=== PATIENT | female | born 1965 | race Caucasian/White ===

== ENCOUNTER 2019-10-15 05:54 | Inpatient (IN) | payer MEDICAID, OTHER ==
[~2019-10-15] VITALS: Ht 173 cm; Wt 200.2 kg
[2019-10-15] MEDS ORDERED: FENT1PAT TD (06:12)
[2019-10-15] MEDS ORDERED: WARF4TAB PO (06:12)
[2019-10-15] MEDS ORDERED: NYST1POW24 MC (06:12)
[2019-10-15] MEDS ORDERED: ALLO100T PO (06:12)
[2019-10-15] MEDS ORDERED: PRAM0.5T2 PO (06:12)
[2019-10-15] MEDS ORDERED: DICL50TA6 PO (06:12)
[2019-10-15] MEDS ORDERED: OXYC10TA7 PO (06:12)
[2019-10-15] MEDS ORDERED: METO10TA7 PO (06:12)
[2019-10-15] MEDS ORDERED: BACL20TA PO (06:12)
[2019-10-15] MEDS ORDERED: DULO30CA3 PO (06:12)
[2019-10-15] MEDS ORDERED: LEVO75TA PO (06:12)
[2019-10-15] MEDS ORDERED: CIPR-225 PO (06:12)
[2019-10-15] MEDS ORDERED: POTA99TA21 PO (06:12)
[2019-10-15] MEDS ORDERED: PANT40SU PO (06:12)
[2019-10-15] MEDS ORDERED: METF500S5 PO (06:12)
[2019-10-15] MEDS ORDERED: FURO-124 PO (06:12)
--- NOTE | 2019-10-15 06:23 | ED Respiratory ---
General Chief Complaint: Respiratory Problems Stated Complaint: SOA Source: patient, EMS, custodial records Exam Limitations: no limitations History of Present Illness Date Seen by Provider: Oct 15, 2019 Time Seen by Provider: 05:57 Initial Comments Patient arrives to ER by EMS from [facility] with chief complaint of decreased oxygen saturations noted on morning vital signs. She was not started feeling short of breath having any cough fevers chills but said she felt a little foggy this morning. She does not wear oxygen routinely. On room air she was 87 percent and on 6 L nasal cannula per EMS she was 100% she does not have any known pulmonary disease. 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 She has noticed a lot of increased swelling in bilateral legs all the way up into her hips. She says last week before the swelling she weighed 444 pounds. She has not been weighed this week. She was in the rehabilitation unit for physical therapy after a right hip fracture. She started having problems with her knee and so they scheduled her for an MRI but because of global pandemic restrictions she was unable to get the MRI and has been in a holding pattern since. For the past few weeks she's been having some red rash on bilateral lower extremities and swelling that has steadily gotten worse. She is on her second course of antibiotics. She has been on Cipro for 2 days. A few days ago she noticed some blisters and weeping from her legs and this was cultured showing MSSA pansensitive. She's had no sick contacts. Her bowels are regular and she has no dysuria. She says she has no known heart disease but she did have a history of kidney failure years ago. Allergies and Home Medications Allergies Coded Allergies: diphenhydramine (Verified Allergy, Unknown, 10/15/19) RESTLESS LEGSSD Home Medications Pantoprazole Sodium 40 Mg , 40 MG PO DAILY, (Reported) Warfarin Sodium 4 Mg Tablet, Unknown Dose PO DAILY, (Reported) Patient Home Medication List Home Medication List Reviewed: Yes Review of Systems Review of Systems Constitutional: No chills, No fever, No malaise, No weakness EENTM: No ear discharge, No ear pain Respiratory: No cough, No phlegm; short of breath; No wheezing Cardiovascular: No chest pain; edema; No Hx of Intervention, No vascular heart diseas Gastrointestinal: No abdominal pain, No nausea, No vomiting Genitourinary: No discharge, No dysuria Musculoskeletal: No back pain, No joint pain Skin: see HPI, rash Psychiatric/Neurological: Denies Headache, Denies Numbness All Other Systems Reviewed Negative Unless Noted: Yes Past Mjrtnre-Rbmoca-Qvosnv Hx Patient Social History Alcohol Use: Denies Use Recreational Drug Use: No Smoking Status: Former Smoker Type Used: Cigarettes 2nd Hand Smoke Exposure: No Recent Hopitalizations: No Physical Abuse: No Sexual Abuse: No Mistreated: No Fear: No Immunizations Up To Date Tetanus Booster (TDap): Unknown Seasonal Allergies Seasonal Allergies: No Past Medical History Surgeries: Yes Appendectomy, Section, Gallbladder, Orthopedic Respiratory: Yes Sleep Apnea Cardiac: No Neurological: Yes Neuropathy Genitourinary: No Gastrointestinal: Yes Gastroesophageal Reflux Musculoskeletal: Yes Fibromyalgia Endocrine: Yes Diabetes, Non-Insulin dep HEENT: No Cancer: No Psychosocial: No Integumentary: Yes Recent Skin Changes Blood Disorders: No Physical Exam Vital Signs - First Documented 10/15/19 06:12 Temp 36.5 Pulse 79 Resp 20 B/P (MAP) 144/70 (94) Pulse Ox 96 O2 Delivery Nasal Cannula O2 Flow Rate 4.00 Capillary Refill : Height: '" Weight: lbs. oz. kg; BMI Method: General Appearance: mild distress, obese (morbid) Eyes: Bilateral Eye Normal Inspection, Bilateral Eye PERRL, Bilateral Eye EOMI HEENT: PERRL/EOMI, pharynx normal Neck: full range of motion, normal inspection Respiratory: lungs clear, no accessory muscle use, respiratory distress (mild with respiratory rate of 20 and oxygen sats 89% on room air. Oxygen sats 96% on 4L), decreased breath sounds (secondary to habitus) Cardiovascular: normal peripheral pulses, regular rate, rhythm (76) Gastrointestinal: normal bowel sounds, non tender, soft Extremities: normal capillary refill, pedal edema (bilateral erythematous edema from the feet up to the hips with some shallow ulcers and A modest amount of weeping edema) Neurologic/Psychiatric: alert, normal mood/affect, oriented x 3 Skin: other (lower extremities are blanchable erythema with a few bullae that have turned into shallow ulcers bilaterally.) Progress/Results/Core Measures Suspected Sepsis SIRS Temperature: Pulse: Respiratory Rate: Laboratory Tests 10/15/19 06:40: White Blood Count 7.3 Blood Pressure / Mean: Laboratory Tests 10/15/19 06:40: Creatinine 1.55H, INR Comment 2.4H, Platelet Count 364, Total Bilirubin 0.3 Results/Orders Lab Results Laboratory Tests Test 10/15/19 06:40 10/15/19 07:00 Range/Units White Blood Count 7.3 4.3-11.0 10^3/uL Red Blood Count 3.75 L 4.35-5.85 10^6/uL Hemoglobin 10.8 L 11.5-16.0 G/DL Hematocrit 35 35-52 % Mean Corpuscular Volume 93 80-99 FL Mean Corpuscular Hemoglobin 29 25-34 PG Mean Corpuscular Hemoglobin Concent 31 L 32-36 G/DL Red Cell Distribution Width 18.7 H 10.0-14.5 % Platelet Count 364 130-400 10^3/uL Mean Platelet Volume 9.7 7.4-10.4 FL Neutrophils (%) (Auto) 67 42-75 % Lymphocytes (%) (Auto) 16 12-44 % Monocytes (%) (Auto) 8 0-12 % Eosinophils (%) (Auto) 9 0-10 % Basophils (%) (Auto) 0 0-10 % Neutrophils # (Auto) 4.9 1.8-7.8 X 10^3 Lymphocytes # (Auto) 1.2 1.0-4.0 X 10^3 Monocytes # (Auto) 0.6 0.0-1.0 X 10^3 Eosinophils # (Auto) 0.6 H 0.0-0.3 10^3/uL Basophils # (Auto) 0.0 0.0-0.1 10^3/uL Prothrombin Time 26.4 H 12.2-14.7 SEC INR Comment 2.4 H 0.8-1.4 Activated Partial Thromboplast Time 41 H 24-35 SEC Sodium Level 139 135-145 MMOL/L Potassium Level 3.6 3.6-5.0 MMOL/L Chloride Level 96 L 98-107 MMOL/L Carbon Dioxide Level 29 21-32 MMOL/L Anion Gap 14 5-14 MMOL/L Blood Urea Nitrogen 18 7-18 MG/DL Creatinine 1.55 H 0.60-1.30 MG/DL Estimat Glomerular Filtration Rate 35 BUN/Creatinine Ratio 12 Glucose Level 146 H 70-105 MG/DL Calcium Level 9.2 8.5-10.1 MG/DL Corrected Calcium 9.6 8.5-10.1 MG/DL Total Bilirubin 0.3 0.1-1.0 MG/DL Aspartate Amino Transf (AST/SGOT) 33 5-34 U/L Alanine Aminotransferase (ALT/SGPT) 19 0-55 U/L Alkaline Phosphatase 68 40-136 U/L Troponin I < 0.028 <0.028 NG/ML B-Type Natriuretic Peptide 52.5 <100.0 PG/ML Total Protein 8.2 6.4-8.2 GM/DL Albumin 3.5 3.2-4.5 GM/DL Blood Gas Puncture Site RT RAD Blood Gas Patient Temperature 97.7 Arterial Blood pH 7.41 7.37-7.43 Arterial Blood Partial Pressure CO2 55 H 35-45 MMHG Arterial Blood Partial Pressure O2 76 L 79-93 MMHG Arterial Blood HCO3 34 H 23-27 MMOL/L Arterial Blood Total CO2 36.1 H 21.0-31.0 MMOL/L Arterial Blood Oxygen Saturation 95 94-100 % Arterial Blood Base Excess 9.5 H -2.5-2.5 MMOL/L Reddy Test YES-POS Blood Gas Ventilator Setting NO Blood Gas Inspired Oxygen 4 L My Orders Orders - JACQUI,LOUIS J Chest 1 View, Ap/Pa Only (10/15/19 06:10) Cbc With Automated Diff (10/15/19 06:10) Comprehensive Metabolic Panel (10/15/19 06:10) BNP (10/15/19 06:10) Protime With Inr (10/15/19 06:10) Continuous Ekg Monitoring (10/15/19 06:10) Ekg Tracing (10/15/19 06:10) Troponin I (10/15/19 06:10) Partial Thromboplastin Time (10/15/19 06:10) Blood Culture (10/15/19 06:10) Cefepime Injection (Maxipime Injection) (10/15/19 06:30) Vancomycin Injection (Vancomycin Injecti (10/15/19 06:28) Pharmacy To Dose (Pharmacy To Dose) (10/15/19 06:30) Arterial Blood Gas (10/15/19 07:00) Medications Given in ED Current Medications Medications Dose Ordered Sig/Reymundo Route Start Time Stop Time Status Last Admin Dose Admin Cefepime HCl 1000 mg/Sterile Water 10 ml @ 200 mls/hr ONCE ONCE IV 10/15/19 06:30 10/15/19 06:32 DC 10/15/19 07:02 200 MLS/HR Miscellaneous PHARMACY TO DOSE VANCOMY... ONCE ONCE IV 10/15/19 06:30 10/15/19 06:32 DC 10/15/19 07:25 1 EA Vancomycin HCl 2000 mg/Sodium Chloride 500 ml @ 260 mls/hr 0628 ONCE IV 10/15/19 06:28 10/15/19 08:23 DC 10/15/19 07:25 260 MLS/HR Vital Signs/I&O 10/15/19 06:12 Temp 36.5 Pulse 79 Resp 20 B/P (MAP) 144/70 (94) Pulse Ox 96 O2 Delivery Nasal Cannula O2 Flow Rate 4.00 Capillary Refill : Progress Note : Time: 06:26 Progress Note Hypoxia from? If Her PT-INR is not sufficient it could be a pulmonary embolism however she is not tachycardic nor having any chest pain. Could be fluid overload related to kidney disease or her MSSA bilateral lower extremity cellulitis. Plann to obtain blood cultures. ABG, EKG, troponin. She is on her second course of outpatient antibiotics so we can cover her with cefepime and vancomycin. ECG Initial ECG Impression Date: Oct 15, 2019 Initial ECG Impression Time: 06:27 Initial ECG Rate: 79 Initial ECG Rhythm: Normal Sinus Initial ECG Intervals: QT (558) Initial ECG Impression: Normal Comment Normal sinus rhythm without clinically relevant ST changes. Diagnostic Imaging Diagonstic Imaging: Xray Plain Films/CT/US/NM/MRI: chest Comments NAME: JACKIE CAMPOS [facility] REC#: [id number] PT STATUS: REG ER : 1965 PHYSICIAN: LOUIS OSMAN MD ADMIT DATE: 10/15/19/ER Signed Date of Exam:10/15/19 CHEST 1 VIEW, AP/PA ONLY HISTORY: Shortness of air. COMPARISON: None TECHNIQUE: Frontal view of the chest. FINDINGS: Evaluation appears somewhat suboptimal due to positioning. There is elevation of the right hemidiaphragm and low lung volumes. There is mild cardiomegaly. There are diffuse interstitial opacities with perihilar prominence. There is airspace opacity at the left lung base. No significant pleural effusion or pneumothorax is seen. IMPRESSION: 1. Suboptimal examination due to patient positioning. There is cardiomegaly with interstitial opacities and perihilar predominance, may be due to edema or infection. Airspace opacity at the left lung base may be due to infection as well. Dictated by: Dictated on workstation # [id number] Dict: 10/15/1931 Trans: 10/15/1947 [facility] [id number] Interpreted by: JESSICA CARVAJAL MD Electronically signed by: JESSICA CARVAJAL MD 10/15/1947 Reviewed: Reviewed by Me Departure Communication (Admissions) Time/Spoke to Admitting Phy: 09:50 Discussed the case with Dr. Lindsay and she agrees with antibiotic selection and placed on the floor inpatient for oxygen and an IV antibiotics. Impression Primary Impression: Cellulitis and abscess of leg Disposition: 01 HOME, SELF-CARE Condition: Stable Admissions Decision to Admit Reason: Admit from ER (General) Decision to Admit/Date: Oct 15, 2019 Time/Decision to Admit Time: 09:45 LOUIS OSMAN Oct 15, 2019 06:23
[2019-10-15] MEDS ORDERED: VANCOMYCIN INJECTION 2,000 MG in NS IV 500 ML 500 ML IV ONE (06:28)
[2019-10-15] MEDS ORDERED: CEFEPIME INJECTION 1,000 MG in WATER (STERILE) FOR INJECTION 10 ML IV ONE (06:30)
[2019-10-15] MEDS ORDERED: PHARMACY TO DOSE IV ONE (06:30)
[2019-10-15 06:52] LABS: BASOPHILS % (AUTO) 0 % (0-10); EOSINOPHILS # (AUTO) 0.6 10^3/uL (0.0-0.3); EOSINOPHILS % (AUTO) 9 % (0-10); HEMATOCRIT 35 % (35-52); HEMOGLOBIN 10.8 G/DL (11.5-16.0); LYMPHOCYTES # (AUTO) 1.2 X 10^3 (1.0-4.0); LYMPHOCYTES % (AUTO) 16 % (12-44); MEAN CORPUSCULAR HEMOGLOBIN 29 PG (25-34); MEAN CORPUSCULAR HGB CONC 31 G/DL (32-36); MEAN CORPUSCULAR VOLUME 93 FL (80-99); MEAN PLATELET VOLUME 9.7 FL (7.4-10.4); MONOCYTES # (AUTO) 0.6 X 10^3 (0.0-1.0); MONOCYTES % (AUTO) 8 % (0-12); NEUTROPHILS # (AUTO) 4.9 X 10^3 (1.8-7.8); NEUTROPHILS % (AUTO) 67 % (42-75); PLATELET COUNT 364 10^3/uL (130-400); RED CELL DISTRIBUTION WIDTH 18.7 % (10.0-14.5); WHITE BLOOD COUNT 7.3 10^3/uL (4.3-11.0)
[2019-10-15 07:00] LABS: ALBUMIN 3.5 GM/DL (3.2-4.5)
--- NOTE | 2019-10-15 07:00 | NUR ---
REPORT FROM DANIELLA CARRASCO
[2019-10-15 07:01] LABS: CHLORIDE 96 MMOL/L (98-107); INR 2.4 (0.8-1.4); POTASSIUM 3.6 MMOL/L (3.6-5.0); PROTHROMBIN TIME PATIENT 26.4 SEC (12.2-14.7); SODIUM 139 MMOL/L (135-145)
[2019-10-15 07:02] LABS: CALCIUM 9.2 MG/DL (8.5-10.1)
[2019-10-15 07:03] LABS: GLUCOSE 146 MG/DL (70-105); TOTAL PROTEIN 8.2 GM/DL (6.4-8.2)
[2019-10-15 07:04] LABS: CARBON DIOXIDE 29 MMOL/L (21-32)
[2019-10-15 07:05] LABS: BILIRUBIN,TOTAL 0.3 MG/DL (0.1-1.0)
[2019-10-15 07:06] LABS: ABG BASE EXCESS 9.5 MMOL/L (-2.5-2.5); ABG OXYGEN SATURATION 95 % (94-100); ABG PCO2 55 MMHG (35-45); ABG PH 7.41 (7.37-7.43); ABG PO2 76 MMHG (79-93); ABG TCO2 36.1 MMOL/L (21.0-31.0)
[2019-10-15 07:07] LABS: ALKALINE PHOSPHATASE 68 U/L (40-136); CREATININE SERUM 1.55 MG/DL (0.60-1.30); GFR ESTIMATED 35
[2019-10-15 07:07] LABS: ALLENS TEST YES-POS; INSPIRED O2 4 L; PATIENT TEMP 97.7; VENTILATOR NO
[2019-10-15 07:08] LABS: BUN/CREATININE RATIO 12
[2019-10-15 07:10] LABS: ALANINE AMINOTRANSFERASE 19 U/L (0-55)
--- NOTE | 2019-10-15 07:15 | NUR ---
PT RESTING W EYES CLOSED. PT AWAKEN, PT IS ALERT WEARING O2. SL IN PLACE IN R AC. NO REQUEST OR CO AT THIS X
--- NOTE | 2019-10-15 07:38 | Diagnostic Imaging Report ---
HISTORY: Shortness of air. COMPARISON: None TECHNIQUE: Frontal view of the chest. FINDINGS: Evaluation appears somewhat suboptimal due to positioning. There is elevation of the right hemidiaphragm and low lung volumes. There is mild cardiomegaly. There are diffuse interstitial opacities with perihilar prominence. There is airspace opacity at the left lung base. No significant pleural effusion or pneumothorax is seen. IMPRESSION: 1. Suboptimal examination due to patient positioning. There is cardiomegaly with interstitial opacities and perihilar predominance, may be due to edema or infection. Airspace opacity at the left lung base may be due to infection as well. Dictated by: Dictated on workstation # [id number]
--- NOTE | 2019-10-15 10:15 | NUR ---
Report received from Cristina CARRASCO
--- OUTSIDE RECORDS SUMMARY | 2019-10-15 10:30 | XMS REPORT | Continuity of Care Document ---
Demographics Preferred Language Unknown Marital Status Unknown Gnosticist Affiliation Unknown Race Unknown Ethnic Group Unknown Author Organization Unknown Address Unknown Phone Unavailable Allergies There is no data. Medications There is no data. Problems There is no data. Procedures There is no data. Results Test Result Range Complete blood count (CBC) with automate d white blood cell (WBC) differential - 10/15/19 06:40 Blood leukocytes automated count (number/volume) 7.3 10*3/uL 4.3-11.0 Blood erythrocytes automated count (number/volume) 3.75 10*6/uL 4.35-5.85 Venous blood hemoglobin measurement (mass/volume) 10.8 g/dL 11.5-16.0 Blood hematocrit (volume fraction) 35 % 35-52 Automated erythrocyte mean corpuscular volume 93 [ foz_us] 80-99 Automated erythrocyte mean corpuscular h emoglobin (mass per erythrocyte) 29 pg 25-34 Automated erythrocyte mean corpuscular h emoglobin concentration measurement (mass/volume) 31 g/dL 32-36 Automated erythrocyte distribution width ratio 18. 7 % 10.0- 14.5 Automated blood platelet count (count/volume) 364 10*3/uL 130-400 Automated blood platelet mean volume measurement 9.7 [foz_us] 7.4-10.4 Automated blood neutrophils/100 leukocytes 67 % 42-75 Automated blood lymphocytes/100 leukocytes 16 % 12-44 Blood monocytes/100 leukocytes 8 % 0-12 Automated blood eosinophils/100 leukocytes 9 % 0-10 Automated blood basophils/100 leukocytes 0 % 0-10 Blood neutrophils automated count (number/volume) 4.9 10*3 1.8-7.8 Blood lymphocytes automated count (number/volume) 1.2 10*3 1.0-4.0 Blood monocytes automated count (number/volume) 0. 6 10*3 0.0-1.0 Automated eosinophil count 0.6 10*3/uL 0 .0-0.3 Automated blood basophil count (count/volume) 0.0 10*3/uL 0.0-0.1 Comprehensive metabolic panel - 10/15/19 06:40 Serum or plasma sodium measurement (moles/volume) 139 mmol/L 135-145 Serum or plasma potassium measurement (moles/volume) 3.6 mmol/L 3.6-5.0 Serum or plasma chloride measurement (moles/volume) 96 mmol/L 98-107 Carbon dioxide 29 mmol/L 21-32 Serum or plasma anion gap determination (moles/volume) 14 mmol/L 5-14 Serum or plasma urea nitrogen measurement (mass/volume ) 18 mg/dL 7-18 Serum or plasma creatinine measurement (mass/volume) 1.55 mg/dL 0.60-1.30 Serum or plasma urea nitrogen/creatinine mass ratio 12 NRG Serum or plasma creatinine measurement w ith calculation of estimated glomerular filtration rate 35 NRG Serum or plasma glucose measurement (mass/volume) 146 mg/dL 70-105 Serum or plasma calcium measurement (mass/volume) 9.2 mg/dL 8.5-10.1 Serum or plasma total bilirubin measurement (mass/volu me) 0.3 mg/dL 0.1-1.0 Serum or plasma alkaline phosphatase matthew surement (enzymatic activity/volume) 68 U/L 40-136 Serum or plasma aspartate aminotransfera se measurement (enzymatic activity/volume) 33 U/L 5-34 Serum or plasma alanine aminotransferase measurement (enzymatic activity/volume) 19 U/L 0-55 Serum or plasma protein measurement (mass/volume) 8.2 g/dL 6.4-8.2 Serum or plasma albumin measurement (mass/volume) 3.5 g/dL 3.2-4.5 CALCIUM CORRECTED 9.6 mg/dL 8.5-10.1 PT panel in platelet poor plasma by coag ulation assay - 10/15/19 06:40 Prothrombin time (PT) in platelet poor plasma by coagu lation assay 26.4 s 12.2-14.7 INR in platelet poor plasma or blood by coagulation as say 2.4 0.8-1.4 Activated partial thromboplastin time (a PTT) in platelet poor plasma bycoagulation assay - 10/15/19 06:40 Activated partial thromboplastin time (a PTT) in platelet poor plasma bycoagulation assay 41 s 24-35 Serum or plasma troponin i.cardiac measu rement (mass/volume) - 10/15/19 06:40 Serum or plasma troponin i.cardiac measurement (mass/v olume) < ng/mL <0.028 Serum or plasma lithium measurement (mol es/volume) - 10/15/19 06:40 BNP PT 52.5 pg/mL <100.0 Arterial blood gas measurement - 0 07:00 Blood pCO2 55 mm[Hg] 35-45 Blood pO2 76 mm[Hg] 79-93 Arterial blood bicarbonate measurement (moles/volume) 34 mmol/L 23-27 Arterial blood base excess by calculation 9.5 mmol /L -2.5-2.5 Arterial blood oxygen saturation measurement 95 % 94-100 * Inhaled oxygen flow rate 4 L NRG Arterial blood pH measurement with patient temperature correction 7.41 7.37-7.43 Arterial blood carbon dioxide, total measurement (mole s/volume) 36.1 mmol/L 21.0-31.0 Body site RT RAD NRG Assessment of wrist artery patency prior to arterial p uncture YES-POS NRG Setting of ventilation mode NO NR G Measurement of body temperature 97.7 NRG Encounters ACCT No. Visit Date/Time Discharge Status Pt. Type Provider Facility Loc./Unit Complaint [id number] 10/15/2019 06:53:00 Document Registration
--- NOTE | 2019-10-15 10:35 | NUR ---
Nirav Campos admitted to room 407-1, with an admitting diagnosis of Cellultis Bilateral LE, on 10/15/19 from AM via , accompanied by .NIRAV CAMPOS introduced to surroundings, call light, bed controls, phone, TV, temperature control, lights, meal times, smoking policy, visitor policy, side rail policy, bathrooms and showers. Patient Rights given to patient in the handbook.NIRAV CAMPOS verbalizes understanding that [facility] is not responsible for the loss or damage to any personal effects or valuables that are kept in the patients posession during their hospitalization. NIRAV CAMPOS verbalizes understanding of Interdisciplinary Patient Education. Patient and/or family were informed about the Rapid Response Team and its purpose.
--- NOTE | 2019-10-15 10:35 | NUR ---
NIRAV CAMPOS admitted to room 407-1, with an admitting diagnosis of CELLULITUS/HYPOXIA , on 10/15/19 from AM via BED, accompanied by STAFF. NIRAV CAMPOS introduced to surroundings, call light, bed controls, phone, TV, temperature control, lights, meal times, smoking policy, visitor policy, side rail policy, bathrooms and showers. Patient Rights given to patient in the handbook. NIRAV CAMPOS verbalizes understanding that [facility] is not responsible for the loss or damage to any personal effects or valuables that are kept in the patients posession during their hospitalization. NIRAV CAMPOS verbalizes understanding of Interdisciplinary Patient Education. Patient and/or family were informed about the Rapid Response Team and its purpose.
[2019-10-15 10:47] VITALS: BP 135/75
[2019-10-15] MEDS ORDERED: fentaNYL PATCH 75 MCG (DURAGESIC) TOP SCH (11:00)
[2019-10-15] MEDS ORDERED: ONDANSETRON 4 MG/2 ML (SDV) Z0FRAN IVP PRN (11:15)
[2019-10-15] MEDS ORDERED: HYDROcodone/APAP 5 MG/325 MG (LORTAB) TAB PO PRN (11:15)
[2019-10-15] MEDS: PANTOPRAZOLE 40 MG (PROTONIX) TAB PO SCH (11:24)
[2019-10-15] MEDS: inSUlin ASPART (NovoLOG) 1 UNIT/0.01 ML (CHARGE PER UNIT) SC SCH ×3 (11:26→20:17)
[2019-10-15] MEDS: LACTATED RINGERS 1,000 ML IV SCH ×2 (11:27→20:17)
[2019-10-15 11:42] VITALS: BP 135/75
[2019-10-15 11:43] VITALS: BP 135/75
--- NOTE | 2019-10-15 11:54 | NUR ---
VANCOMYCIN DOSING SCR 1.55; ADJ BW 118 KG; CRCL ~ 78; DOSED VANC 2 GM Q12H CHECK TROUGH LEVEL BEFORE 4TH DOSE 10/15 1830 HOLD DOSE AND CONTACT PHARMACY IF LEVEL IS GREATER THAN 20 OR LESS THAN 10
[2019-10-15] MEDS: CEFEPIME 1,000 MG/SWFI 10 ML IV PUSH IV SCH ×4 (12:06→18:24)
[2019-10-15 12:24] VITALS: BP 144/70
[2019-10-15] MEDS ORDERED: RT-ALBUTEROL SULF 2.5 MG/3 ML PRE-MIX VIAL INH PRN (13:00)
[2019-10-15] MEDS ORDERED: WRF10T PO (13:40)
[2019-10-15] MEDS ORDERED: BACL10TA PO (13:40)
[2019-10-15] MEDS ORDERED: WARF-48 PO (13:40)
[2019-10-15] MEDS ORDERED: DICL100G31 TD (13:40)
[2019-10-15] MEDS ORDERED: NYST15OI13 TP (14:07)
[2019-10-15] MEDS ORDERED: METF-397 PO (14:07)
[2019-10-15] MEDS ORDERED: PANT40TA2 PO (14:07)
[2019-10-15] MEDS ORDERED: METO2.5T PO (14:07)
[2019-10-15] MEDS ORDERED: LEVO50TA6 PO (14:07)
[2019-10-15] MEDS ORDERED: PRAM1TAB2 PO (14:07)
[2019-10-15] MEDS ORDERED: OXYC-190 PO (14:07)
[2019-10-15] MEDS ORDERED: POTA10TA36 PO (14:07)
[2019-10-15] MEDS ORDERED: IBUP-2185 PO (14:07)
[2019-10-15] MEDS ORDERED: FENT1PAT10 TD (14:22)
--- NOTE | 2019-10-15 14:24 | NUR ---
I WENT THROUGH THE ORDER SUMMARY REPORT FROM [facility] AND CALLED [facility] TO COMPLETE THE MED REC. WHEN I CALLED THEY TOLD ME THAT THE LAST TIME THAT A FENTANYL PATCH WAS APPLIED WAS 10/12/2019
[2019-10-15] MEDS: RT-ALBUTEROL SULF 2.5 MG/3 ML PRE-MIX VIAL INH SCH ×2 (15:10→20:27)
[2019-10-15] MEDS ORDERED: DICLOFENAC 1% GEL 100 GM (VOLTAREN) TUBE TOP PRN (15:15)
[2019-10-15] MEDS ORDERED: warFARin 5 MG (COUMADIN) TAB PO SCH ×2 (15:15→18:00)
[2019-10-15] MEDS ORDERED: warFARin 10 MG (COUMADIN) TAB PO SCH (15:15)
--- NOTE | 2019-10-15 16:25 | History & Physical-Hospitalist ---
History of Present Illness HPI/Chief Complaint Pt is a 54yoCF with a PMH of femur fracture in January 2019 s/p repair, hypothyroidism, chronic pain, history of DVT who presented to the ER due to hypoxia. Reportedly her oxygen saturation was 87% on morning vital checks. She was not coughing or short of breath when this was done but now she states she is somewhat SOB. Her biggest concern has been her legs. She states 1 week ago she developed a "rash" on both of her legs that was cultured and she was informed today that it was MSSA. She was treated with oral abx [place] the [place] but it did not improve her cellulitis. She is being admitted for failing outpatient management. Source: patient Date Seen 10/15/19 Time Seen by a Provider: 15:48 Attending Physician Salas Lindsay MD PCP Omero Beck DO Referring Physician Date of Admission Oct 15, 2019 at 10:01 Home Medications & Allergies Home Medications Reviewed patient Home Medication Reconciliation performed by pharmacy medication reconciliations career resource technician and/or nursing. Patients Allergies have been reviewed. Allergies Allergies Coded Allergies diphenhydramine (Verified Allergy, Unknown, 10/15/19) RESTLESS LEGSSD Past Ohzmxwb-Aoigws-Tvbqij Hx Past Med/Social Hx: Reviewed Nursing Past Med/Soc Hx Patient Social History Alcohol Use: Denies Use Recreational Drug Use: No Smoking Status: Former Smoker Type Used: Cigarettes 2nd Hand Smoke Exposure: No Recent Foreign Travel: No Contact w/other who traveled: No Recent Hopitalizations: No Recent Infectious Disease Expo: No Immunizations Up To Date Tetanus Booster (TDap): Unknown Date of Pneumonia Vaccine: Apr 04, 2019 Seasonal Allergies Seasonal Allergies: No Past Medical History Surgeries: Appendectomy, Section, Gallbladder, Orthopedic Neurological: Neuropathy : No Gastrointestinal: Gastroesophageal Reflux Musculoskeletal: Fibromyalgia Endocrine: Diabetes, Non-Insulin dep Skin/Integumentary: Recent Skin Changes History of Blood Disorders: No Family History Reviewed Nursing Family Hx Review of Systems Constitutional: No chills, No fever EENTM: no symptoms reported Respiratory: No cough; short of breath Cardiovascular: No chest pain; edema Gastrointestinal: No abdominal pain, No nausea, No vomiting Genitourinary: hesitancy Musculoskeletal: no symptoms reported Skin: see HPI Psychiatric/Neurological: No Symptoms Reported Physical Exam Physical Exam Vital Signs Vital Signs - First Documented 10/15/19 10/15/19 06:12 12:24 Temp 36.5 Pulse 79 Resp 20 B/P (MAP) 144/70 (94) Pulse Ox 96 O2 Delivery Nasal Cannula O2 Flow Rate 4.00 FiO2 36 Capillary Refill : Less Than 3 SecondsLess Than 3 Seconds Height, Weight, BMI Height: '" Weight: lbs. oz. kg; 66.82 BMI Method: General Appearance: No Apparent Distress, Chronically ill, Obese HEENT: PERRL/EOMI, Moist Mucous Membranes Neck: Normal Inspection, Supple Respiratory: Lungs Clear, No Accessory Muscle Use, Other Cardiovascular: Regular Rate, Rhythm, No JVD, No Murmur Gastrointestinal: Normal Bowel Sounds, Non Tender, Soft Extremity: Other (signigicant lymphedema with weeping venous stasis ulcers on bilateral legs, both are quite erythematous and warm to touch) Neurologic/Psychiatric: Alert, Oriented x3, Normal Mood/Affect Results Results/Procedures Labs Laboratory Tests 10/16/19 05:28 Patient resulted labs reviewed. Imaging [facility] [place], [place] NAME: JACKIE CAMPOS [facility] REC#: [id number] PT STATUS: REG ER : 1965 PHYSICIAN: LOUIS OSMAN MD ADMIT DATE: 10/15/19/ER Signed Date of Exam:10/15/19 CHEST 1 VIEW, AP/PA ONLY HISTORY: Shortness of air. COMPARISON: None TECHNIQUE: Frontal view of the chest. FINDINGS: Evaluation appears somewhat suboptimal due to positioning. There is elevation of the right hemidiaphragm and low lung volumes. There is mild cardiomegaly. There are diffuse interstitial opacities with perihilar prominence. There is airspace opacity at the left lung base. No significant pleural effusion or pneumothorax is seen. IMPRESSION: 1. Suboptimal examination due to patient positioning. There is cardiomegaly with interstitial opacities and perihilar predominance, may be due to edema or infection. Airspace opacity at the left lung base may be due to infection as well. Dictated by: Dictated on workstation # [id number] Dict: 10/15/19 0732 Trans: 10/15/19 0848 [facility] [id number] Interpreted by: JESSICA CARVAJAL MD Electronically signed by: JESSICA CARVAJAL MD 10/15/19 0848 Assessment/Plan Admission Diagnosis Cellulitis Admission Status: Inpatient Order (span 2 midnights) Reason for Inpatient Admission: failed outpatient management Assessment and Plan Cellulitis Lymphedema Morbid Obesity Continue on Vanc and Cefepime for now Wound care consulted, appreciate recs Advised leg elevation Would likely benefit from lymphedema management with OT as an outpatient Hypoxia ?PNA on CXR Continue abx New onset, ?obesity hypoventilation syndrome Has history of DVT but on therapeutic warfarin and INR within goal Consider CTA if creatine improves tomorrow Elevated creatinine Unsure of baseline Continue IVF Hold diuretics Hypothyroidism Continue home med Diagnosis/Problems Diagnosis/Problems (1) Lymphedema Status: Chronic (2) Morbid obesity (3) Hypoxia Status: Acute (4) Hypothyroidism Qualifiers: Hypothyroidism type: unspecified Qualified Codes: E03.9 - Hypothyroidism, unspecified (5) Cellulitis and abscess of leg Status: Acute (6) [place] (acute kidney injury) (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
[2019-10-15 16:34] VITALS: BP 152/74
--- NOTE | 2019-10-15 18:00 | Wound Care Assessment ---
Wound Care Assessment Date Seen by Provider: Oct 15, 2019 Time Seen by Provider: 17:50 Chief Complaint Swelling and inflammation of legs. HPI The patient is a 54 year old female with bilateral lymphedema, calf cellulitis, and bilateral calf ulcerations. The patient suffers with severe obesity (BMI = 67), lymphedema and decreased mobility. Unable to elevate actively, but states she would be willing to try to allow the nursing staff to elevate her legs. Drainage is currently controlled with chucks under her legs. Would avoid wound dressings as these will become saturated with drainage and cause maceration. Elevation of ankles above heart discussed and recommended. intermediate teacher her condition would be helped with weight loss. I am uncertain if she would be a candidate for gastric restriction operation. Have little else to offer at this time. Past Medical History: Admits Diabetes Type II Smoking Status: Former Smoker Recreational Drug Use: No Alcohol Use: Denies Use Review of Systems Pulmonary: No Dyspnea Cardiovascular: No: Chest Pain Exam Vital Signs Date Time Temp Pulse Resp B/P (MAP) Pulse Ox O2 Delivery O2 Flow Rate FiO2 10/15/19 16:34 36.6 76 20 152/74 (100) 95 Nasal Cannula 3.00 10/15/19 12:24 36 Capillary Refill : Less Than 3 SecondsLess Than 3 Seconds General Appearance: no apparent distress Respiratory: no respiratory distress Extremities: other (Multiple bilateral leg ulcers.) Results Laboratory Tests 10/15/19 06:40: White Blood Count 7.3, Red Blood Count 3.75L, Hemoglobin 10.8L, Hematocrit 35, Mean Corpuscular Volume 93, Mean Corpuscular Hemoglobin 29, Mean Corpuscular Hemoglobin Concent 31L, Red Cell Distribution Width 18.7H, Platelet Count 364, Mean Platelet Volume 9.7, Neutrophils (%) (Auto) 67, Lymphocytes (%) (Auto) 16, Monocytes (%) (Auto) 8, Eosinophils (%) (Auto) 9, Basophils (%) (Auto) 0, Neutrophils # (Auto) 4.9, Lymphocytes # (Auto) 1.2, Monocytes # (Auto) 0.6, Eosinophils # (Auto) 0.6H, Basophils # (Auto) 0.0, Prothrombin Time 26.4H, INR Comment 2.4H, Activated Partial Thromboplast Time 41H, Sodium Level 139, Potassium Level 3.6, Chloride Level 96L, Carbon Dioxide Level 29, Anion Gap 14, Blood Urea Nitrogen 18, Creatinine 1.55H, Estimat Glomerular Filtration Rate 35, BUN/Creatinine Ratio 12, Glucose Level 146H, Calcium Level 9.2, Corrected Calcium 9.6, Total Bilirubin 0.3, Aspartate Amino Transf (AST/SGOT) 33, Alanine Aminotransferase (ALT/SGPT) 19, Alkaline Phosphatase 68, Troponin I < 0.028, B- Type Natriuretic Peptide 52.5, Total Protein 8.2, Albumin 3.5 10/15/19 07:00: Blood Gas Puncture Site RT RAD, Blood Gas Patient Temperature 97.7, Arterial Blood pH 7.41, Arterial Blood Partial Pressure CO2 55H, Arterial Blood Partial Pressure O2 76L, Arterial Blood HCO3 34H, Arterial Blood Total CO2 36.1H, Arterial Blood Oxygen Saturation 95, Arterial Blood Base Excess 9.5H, Reddy Test YES-POS, Blood Gas Ventilator Setting NO, Blood Gas Inspired Oxygen 4 L 10/15/19 11:19: Glucometer 100 10/15/19 16:29: Glucometer 110 Assessment/Plan/Dx 1. Bilateral lymphedema, with cellulitis and bilateral ulcers. 2. Morbid obesity, severe, BMI = 67. 3. Diabetes with leg ulcers. 4. Dysmobility. Plan: This kind of ulceration is very difficult to treat, as the lymphedema can be intractable. If the patient can be coaxed into elevating significantly, she may be able to reduce edema, inflammation, and see some healing. With her BMI this is very challenging. Will see again as needed. MARCUS HO MD Oct 15, 2019 18:00
[2019-10-15] MEDS: BACLOFEN 10 MG (LIORESAL) TAB PO SCH ×2 (18:24→20:17)
[2019-10-15] MEDS: oxyCODONE/APAP 7.5-325 MG (PERCOCET 7.5) TABLET PO PRN (18:30)
[2019-10-15 20:10] VITALS: BP 146/72
[2019-10-15] MEDS: VANCOMYCIN 2000 MG/NS 500 ML IVPB IV SCH ×2 (20:17)
[2019-10-15] MEDS: ALLOPURINOL 100 MG (ZYLOPRIM) TAB PO SCH (20:17)
[2019-10-15] MEDS: PRAMIPEXOLE 0.5 MG TAB (MIRAPEX) PO SCH (20:17)
[2019-10-15] MEDS: NYSTATIN OINTMENT 30 GM TUBE TP SCH (20:18)
[2019-10-15] MEDS ORDERED: NON-FORMULARY MEDICATION 1 EA EA (Pramipexole Di-HCl (Mirapex) 1 MG) PO SCH (21:00)
[2019-10-16 00:35] VITALS: BP 117/60
[2019-10-16] MEDS: CEFEPIME 1,000 MG/SWFI 10 ML IV PUSH IV SCH ×8 (01:12→17:13)
[2019-10-16] MEDS: RT-ALBUTEROL SULF 2.5 MG/3 ML PRE-MIX VIAL INH SCH ×4 (03:15→21:07)
--- NOTE | 2019-10-16 03:28 | NUR ---
NOTIFIED SHEKHAR OF PT NEED FOR CPAP. ORDER OBTAINED.
[2019-10-16 04:09] VITALS: BP 129/69
[2019-10-16] MEDS: LACTATED RINGERS 1,000 ML IV SCH (04:09)
[2019-10-16] MEDS: oxyCODONE/APAP 7.5-325 MG (PERCOCET 7.5) TABLET PO PRN ×3 (04:10→20:09)
[2019-10-16] MEDS: inSUlin ASPART (NovoLOG) 1 UNIT/0.01 ML (CHARGE PER UNIT) SC SCH ×4 (05:47→21:00)
[2019-10-16 05:54] LABS: BASOPHILS % (AUTO) 1 % (0-10); EOSINOPHILS # (AUTO) 0.4 10^3/uL (0.0-0.3); EOSINOPHILS % (AUTO) 7 % (0-10); HEMATOCRIT 33 % (35-52); HEMOGLOBIN 10.1 G/DL (11.5-16.0); LYMPHOCYTES # (AUTO) 1.1 X 10^3 (1.0-4.0); LYMPHOCYTES % (AUTO) 18 % (12-44); MEAN CORPUSCULAR HEMOGLOBIN 29 PG (25-34); MEAN CORPUSCULAR HGB CONC 31 G/DL (32-36); MEAN CORPUSCULAR VOLUME 94 FL (80-99); MEAN PLATELET VOLUME 9.5 FL (7.4-10.4); MONOCYTES # (AUTO) 0.4 X 10^3 (0.0-1.0); MONOCYTES % (AUTO) 7 % (0-12); NEUTROPHILS % (AUTO) 67 % (42-75); PLATELET COUNT 284 10^3/uL (130-400); RED CELL DISTRIBUTION WIDTH 18.7 % (10.0-14.5)
[2019-10-16 06:00] LABS: INR 2.3 (0.8-1.4); PROTHROMBIN TIME PATIENT 25.4 SEC (12.2-14.7)
[2019-10-16 06:03] LABS: ALBUMIN 3.2 GM/DL (3.2-4.5); POTASSIUM 3.2 MMOL/L (3.6-5.0)
[2019-10-16 06:05] LABS: CALCIUM 8.8 MG/DL (8.5-10.1)
[2019-10-16 06:08] LABS: BILIRUBIN,TOTAL 0.4 MG/DL (0.1-1.0)
[2019-10-16 06:09] LABS: CREATININE SERUM 1.17 MG/DL (0.60-1.30)
[2019-10-16] MEDS: KCL 20 MEQ TAB (K-DUR) PO SCH (06:12)
[2019-10-16] MEDS: LEVOTHYROXINE 50 MCG (LEVOTHROID) TAB PO SCH (06:12)
--- NOTE | 2019-10-16 07:40 | Diagnostic Imaging Report ---
Indication: Hypoxia Comparison: 10/15/2019 Findings: Single view of the chest demonstrates cardiac enlargement with stable central vascular congestion. There is no pneumothorax or large effusion. Osseous structures are age-appropriate. Impression: Cardiac enlargement with central vascular congestion. Dictated by: Dictated on workstation # [id number]
[2019-10-16 08:12] VITALS: BP 113/60
[2019-10-16] MEDS: VANCOMYCIN 2000 MG/NS 500 ML IVPB IV SCH ×2 (08:42)
[2019-10-16] MEDS: BACLOFEN 10 MG (LIORESAL) TAB PO SCH ×4 (08:45→20:09)
[2019-10-16] MEDS: PRAMIPEXOLE 0.5 MG TAB (MIRAPEX) PO SCH ×3 (08:45→20:09)
[2019-10-16] MEDS: ALLOPURINOL 100 MG (ZYLOPRIM) TAB PO SCH ×2 (08:45→20:09)
[2019-10-16] MEDS: DULoxetine 30 MG (CYMBALTA) CAP PO SCH (08:45)
[2019-10-16] MEDS: PANTOPRAZOLE 40 MG (PROTONIX) TAB PO SCH (08:45)
[2019-10-16] MEDS: NYSTATIN OINTMENT 30 GM TUBE TP SCH (08:46)
[2019-10-16] MEDS ORDERED: PANTOPRAZOLE 40 MG (PROTONIX) TAB PO SCH (09:00)
[2019-10-16] MEDS ORDERED: NON-FORMULARY MEDICATION 1 EA EA (Potassium Chloride 20 MEQ) PO SCH (09:00)
[2019-10-16] MEDS ORDERED: LEVOTHYROXINE 50 MCG (LEVOTHROID) TAB PO SCH (09:00)
[2019-10-16] MEDS ORDERED: DULoxetine 30 MG (CYMBALTA) CAP PO SCH (09:00)
--- NOTE | 2019-10-16 11:21 | Progress Note - Hospitalist ---
Subjective HPI/CC On Admission Date Seen by Provider: Oct 16, 2019 Time Seen by Provider: 11:15 Pt is a 54yoCF with a PMH of femur fracture in January 2019 s/p repair, hypothyroidism, chronic pain, history of DVT who presented to the ER due to hypoxia. Reportedly her oxygen saturation was 87% on morning vital checks. She was not coughing or short of breath when this was done but now she states she is somewhat SOB. Her biggest concern has been her legs. She states 1 week ago she developed a "rash" on both of her legs that was cultured and she was informed today that it was MSSA. She was treated with oral abx at the [place] but it did not improve her cellulitis. She is being admitted for failing outpatient management. Subjective/Events-last exam Pt reports feeling better today. Breathing improved. Leg pain still present but controlled with pain meds. Objective Exam Vital Signs Vital Signs Date Time Temp Pulse Resp B/P (MAP) Pulse Ox O2 Delivery O2 Flow Rate FiO2 10/16/19 09:39 94 Nasal Cannula 5.00 10/16/19 08:12 36.7 72 20 113/60 (77) 10/15/19 12:24 36 Capillary Refill : Less Than 3 SecondsLess Than 3 Seconds General Appearance: Chronically ill, Obese Respiratory: Lungs Clear, No Accessory Muscle Use Cardiovascular: Regular Rate, Rhythm, No Murmur Extremity: Swelling, Other (erythema improving, still with weeping sores and l ymphedema) Neurologic/Psychiatric: Alert, Oriented x3 Results/Procedures Lab Laboratory Tests 10/16/19 05:28 Patient resulted labs reviewed. Assessment/Plan Assessment and Plan Assess & Plan/Chief Complaint Cellulitis Lymphedema Morbid Obesity Continue on Vanc and Cefepime for now Wound care consulted, appreciate recs Advised leg elevation Would likely benefit from lymphedema management with OT as an outpatient Hypoxia ?PNA on CXR Continue abx Has history of DVT but on therapeutic warfarin and INR within goal CXR today shows some vascular congestion Echo ordered CHEYENNE, resolved Creatinine improved DC fluids Hypothyroidism Continue home med Diagnosis/Problems Diagnosis/Problems (1) Lymphedema Status: Chronic (2) Morbid obesity (3) Hypoxia Status: Acute (4) Hypothyroidism Qualifiers: Hypothyroidism type: unspecified Qualified Codes: E03.9 - Hypothyroidism, unspecified (5) Cellulitis and abscess of leg Status: Acute (6) [place] (acute kidney injury) (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
[2019-10-16 12:00] VITALS: BP 125/64
--- NOTE | 2019-10-16 12:41 | NUR ---
RD ASSESSMENT PMHx: hypothyroidism; DVT; DM; gout; morbid obesity PT INTERACTION: Pt was awake and pleasant during nutrition assessment. Pt states current appetite is okay. Note avg PO intake 75% x2meal, per chart review. Pt states following a regular diet at home, and has no issues with chewing/swallowing food. Pt states no recent issues with nausea, vomiting, constipation, or diarrhea. Pt states some recent wt loss, but unsure of amount/timeframe. Note unable to determine recent wt hx, per chart review. Pt states current DM management is "pretty good." Pt states unsure of recent blood glucose averages. Note unable to determine recent HbA1c, per chart review. ABNORMAL NUTRITION-RELATED LAB VALUES LOW: K 3.2; HIGH: glu 128 Est. kcal needs: 1600 kcal | 25 kcal/kg Est. Pro needs: 51 g Pro | 0.8 g Pro/kg PES STATEMENT: Given current PO intake, no nutrition diagnosis at this time (NO-1.1) INTERVENTION: Continue with current diet order of CHO 75g/m 0snack diet. Offered diet education on DM management, but pt declined at this time. Pt states having good control of her DM at this time. Will attempt to offer again prior to discharge. Will continue to follow and reassess as pt needs, intake, and status change. MONITOR/EVALUATE: PO Intake; Plan of Care; Hydration Status; Weight Status; Lab Values Tata Singh, MS, RD, LD
--- NOTE | 2019-10-16 14:02 | NUR ---
CM/SS visited with patient for discharge planning. Plan: The patient will discharge back to [facility] senior living. The tow picker time is set for 1:00 p.m. tomorrow 10/16. CM/SS visited with the patient to discuss discharge. The patient verbalized understanding to being discharged back tomorrow. She states that she has been living there since April of this year. The patient only has Medicaid; therefore, she cannot be skilled at a facility. She states that she does not have any friends or family in the area. CM/SS asked if there was anyone to call to update on care and patient stated "no". Will continue to follow for discharge planning.
--- NOTE | 2019-10-16 14:03 | Physical Therapy Evaluation ---
PT Evaluation-General Medical Diagnosis Admission Date Oct 15, 2019 at 10:01 Medical Diagnosis: cellulitis/hypoxia Onset Date: Oct 15, 2019 Therapy Diagnosis Therapy Diagnosis: impaired mobility Precautions Precautions/Isolations: Fall Prevention, Standard Precautions Weight Bear Status Right Lower Extremity: Right Weight Bearing/Tolerated Left Lower Extremity: Left Weight Bearing/Tolerated Referral Physician: Angélica Reason for Referral: Evaluation/Treatment Medical History Pertinent Medical History: DM, Hypothroidism, Neuropathy Additional Medical History morbid obesity/PE's/DVT's/right femur fracture January 2019 Current History EMS from [place] secondary to decreased SAO2 Reviewed History: Yes Social History Home: Shelter Prior Prior Level of Function SCALE: Activities may be completed with or without assistive devices. 8-Hkylkbzxpe-tetnojk completes the activity by him/herself with no assistance from a helper. 5-Set-up or Clean-up Assistance-helper sets up or cleans up; patient completes activity. [place] assists only prior to or following the activity. 4-Supervision or Touching Assistance-helper provides verbal cues and/or touching/steadying and/or contact guard assistance as patient completes activity. Assistance may be provided throughout the activity or intermittently. 3-Partial/Moderate Assistance-helper does LESS THAN HALF the effort. [place] lifts, holds or supports trunk or limbs, but provides less than half the effort. 2-Substantial/Maximal Assistance-helper does MORE THAN HALF the effort. [place] lifts or holds trunk or limbs and provides more than half the effort. 7-Pupgfktys-qxvgfs does ALL the effort. Patient does none of the effort to complete the activity. Or, the assistance of 2 or more helpers is required for the patient to complete the activity. If activity was not attempted, code reason: 7-Patient Refused. 9-Not Applicable-not attempted and the patient did not perform the activity before the current illness, exacerbation or injury. 10-Not Attempted due to Environmental Limitations-(lack of equipment, weather restraints, etc.). 88-Not Attempted due to Medical Conditions or Safety Concerns. Bed Mobility: 3 Transfers (B,C,W/C): 5 Gait: 4 Stairs: 9 Indoor Mobility (Ambulation): Needed Some Help Stairs: Not [place] Prior Devices Use: Manual wheelchair, Walker PT Evaluation-Current Subjective Patient agrees to PT. C/o bilateral LE pain due to cellulitis. Pain Numeric Pain Scale: 8 Location: Right, Left Location Body Site: Calf Pain Description: Chronic Objective Patient Orientation: Normal For Age Attachments: Oxygen, [place] Catheter, IV ROM/Strength ROM Lower Extremities limited bilaterally due to morbid obesity Strength Lower Extremities 3/5 grossly bilateral Integumentary/Posture Integumentary bilateral distal wounds/cellulitis Bowel Incontinence: Yes Bladder Incontinence: Palencia Cath Posture trunk flexed posture Neuromuscular (Tone, Coordination, Reflexes) grossly intact Sensory Vision: Functional Hearing: Functional Sensation Right Lower Extremit: Intact Sensation Left Lower Extremity: Intact Transfers Roll Left to Right (QC): 1 Sit to Lying (QC): 1 Lying to Sitting/Side of Bed(Q: 1 Sit to Stand (QC): 5 patient requires more assistance with bilateral LE movement to attain supine and sit EOB/repositioned patient up in bed with bed in Trendelenburg position Gait Does the Patient Walk?: Yes Mode of Locomotion: Both Anticipated Mode of Locomotion: Both Distance: 5' Gait Assistive Device: FWW Comments/Gait Description SBA with sidestepping up toward HOB Balance Sitting Static: Normal Sitting Dynamic: Normal Standing Static: Fair Standing Dynamic: Fair Assessment/Needs 54 y.o. female, will be seen short term by skilled PT to address functional strength and mobility to improve current LOF. Rehab Potential: Fair PT Transformer Molder Goals Mcc Goals PT Mcc Goals Time Frame: Oct 27, 2019 Roll Left & Right (QC): 4 Sit to Lying (QC): 4 Lying-Sitting on Side/Bed(QC): 4 Sit to Stand (QC): 5 Chair/Pas-gg-Iuxjv Xfer(QC): 5 Toilet Transfer (QC): 5 Does the Patient Walk: Yes Walk 10 feet (QC): 5 PT Plan Problem List Problem List: Activity Tolerance, Functional Strength, Gait, Bed Mobility, ROM Treatment/Plan Treatment Plan: Continue Plan of Care Treatment Plan: Bed Mobility, Education, Functional Activity Ashvin, Functional Strength, Gait, Safety, Therapeutic Exercise, Transfers Treatment Duration: Oct 27, 2019 Frequency: 6 times per week Estimated Hrs Per Day: .25 hour per day Patient and/or Family Agrees t: Yes Time/GCodes Time In: 1310 Time Out: 1341 Total Billed Treatment Time: 31 Total Billed Treatment 1 visit EVModC 15 min FA 16 min UMU KLEIN PT Oct 16, 2019 14:03
--- NOTE | 2019-10-16 14:18 | Occupational Therapy Eval ---
OT Evaluation-General/PLF Medical Diagnosis Admission Date Oct 15, 2019 at 10:01 Medical Diagnosis: cellulitis/hypoxia Onset Date: Oct 15, 2019 Therapy Diagnosis Therapy Diagnosis: decreased ADL status Precautions Precautions/Isolations: Fall Prevention, Standard Precautions Weight Bear Status Weight Bearing Restriction: Weight Bearing/Tolerated Location Restriction: LE Bilateral Referral Physician: Angélica Referral Reason: Evaluation/Treatment Medical History Pertinent Medical History: DM, Hypothroidism, Neuropathy Additional Medical History femur fx (January 2019) s/p repair, chronic pain, morbid obesity, DVT Current History ED secondary to hypoxia Social History Home: Longterm ADL-Prior Level of Function SCALE: Activities may be completed with or without assistive devices. 3-Hdqpennpfa-hsiawcm completes the activity by him/herself with no assistance fr om a helper. 5-Set-up or Clean-up Assistance-helper sets up or cleans up; patient completes activity. [place] assists only prior to or following the activity. 4-Supervision or Touching Assistance-helper provides verbal cues and/or touching/steadying and/or contact guard assistance as patient completes activity. Assistance may be provided throughout the activity or intermittently. 3-Partial/Moderate Assistance-helper does LESS THAN HALF the effort. [place] lifts, holds or supports trunk or limbs, but provides less than half the effort. 2-Substantial/Maximal Assistance-helper does MORE THAN HALF the effort. [place] lifts or holds trunk or limbs and provides more than half the effort. 3-Cyjnsouqf-bnnydj does ALL the effort. Patient does none of the effort to complete the activity. Or, the assistance of 2 or more helpers is required for the patient to complete the activity. If activity was not attempted, code reason: 7-Patient Refused. 9-Not Applicable-not attempted and the patient did not perform the activity before the current illness, exacerbation or injury. 10-Not Attempted due to Environmental Limitations-(lack of equipment, weather restraints, etc.). 88-Not Attempted due to Medical Conditions or Safety Concerns. ADL PLOF Comments Pt reports living at the half-way since April 2019. She reports she is able to get from her bed to the restroom using FWW, but sometimes needs assistance with toilet hygiene. She was able to complete showering and dressing by herself at [facility] but has been completing sponge baths lately due to wounds on lower legs. Self Care: Needed Some Help Functional Cognition: Independent DME/Equipment: Shower DME/Equipment Comments walker OT Current Status Subjective Pt laying in bed, agreeable to OT evaluation/tx on this date. Reports pain in BLEs due to cellulitis Pain Numeric Pain Scale: 8 Mental Status/Objective Patient Orientation: Person, Place, Time, Situation Attachments: Palencia Catheter, IV, Oxygen Current Upper Extremity ROM WFL, BUE shoulder flexion to approx 150 degrees Upper Extremity Coordination WFL Upper Extremity Strength grossly 3+/5 MMT ADL-Treatment Eating (QC): 6 (Per pt report, she was able to eat lunch without difficulties, she is able to cut food and bring food to her mouth) On/Off Footwear (QC): 1 (Pt unable to don/doff gripper socks ) Toileting Hygiene (QC): 1 (Pt required assistance with wiping buttocks during stand at FWW) Other Treatments Pt laying in bed, OT educated pt on purpose and benefits of OT, she verbalized understanding. Pt then provided information on PLOF, assistance level required at the [place], and medical history. Pt reports she was able to eat lunch without assistance, no difficulties cutting food and bringing food to mouth. OT assisted pt with donning gripper socks before transferring to EOB. Pt attempted to scoot legs towards EOB, requiring assistance BLE, and some assistance with upper body to achieve sitting position. Pt then scooted towards EOB in order to stand at FWW. OT assisted pt with using wet wipe to complete hygiene while pt in stand. Pt returned to sit EOB, then supine requiring assistance with upper and lower body. Pt's bed positioned in Trendelenburg position with assist x2 to scoot towards HOB. OT then assisted pt with doffing gripper socks. Post OT Tx, pt laying in bed, call light in reach and all needs met. Education OT Patient Education: Correct positioning, Energy conservation, Modified ADL techniques, Progress toward Goal/Update tx plan, Purpose of tx/functional activities, Transfer techniques Teaching Recipient: Patient Teaching Methods: Discussion Response to Teaching: Verbalize Understanding OT Half-Way Goals [employer] Broker Goals Time Frame: Oct 26, 2019 Oral Hygiene (QC): 6 Toileting Hygiene (QC): 4 Shower/Bathe Self (QC): 3 Upper Body Dressing (QC): 4 Lower Body Dressing (QC): 3 1=Demonstrate adherence to instructed precautions during ADL tasks. 2=Patient will verbalize/demonstrate understanding of assistive devices/modifications for ADL. 3=Patient will improve strength/tolerance for activity to enable patient to perform ADL's. OT Education/Plan Problem List/Assessment Assessment: Decreased Activ Tolerance, Decreased UE Strength, Impaired Bed Mobility, Impaired I ADL's, Impaired Self-Care Skills Discharge Recommendations Plan/Recommendations: Continue POC Therapy Discharge Recommendati: Other, See Comments (NH) Treatment Plan/Plan of Care Treatment,Training & Education: Yes Patient would benefit from OT for education, treatment and training to promote independence in ADL's, mobility, safety and/or upper extremity function for ADL's. Plan of Care: ADL Retraining, Functional Mobility, UE Funct Exercise/Act Treatment Duration: Oct 26, 2019 Frequency: 5 times per week Estimated Hrs Per Day: .25 hour per day Rehab Potential: Fair Time/GCodes Start Time: 13:10 Stop Time: 13:40 Total Time Billed (hr/min): 30 Billed Treatment Time 1, EVM (15'), FA (15') DUNIA ROCK OT Oct 16, 2019 14:18
--- NOTE | 2019-10-16 14:50 | NUR ---
2ML OF DEFINITY SOLUTION WAS GIVEN. PT TOLERATED EXAM WELL.
[2019-10-16 15:30] VITALS: BP 124/71
[2019-10-16] MEDS ORDERED: warFARin 10 MG (COUMADIN) TAB PO SCH (18:00)
[2019-10-16] MEDS ORDERED: TROUGH ORDER-PHARMACY XX NR (18:30)
[2019-10-16 20:09] VITALS: BP 122/57
[2019-10-17 00:20] VITALS: BP 126/59
[2019-10-17] MEDS: CEFEPIME 1,000 MG/SWFI 10 ML IV PUSH IV SCH ×6 (01:07→12:21)
[2019-10-17] MEDS: NYSTATIN OINTMENT 30 GM TUBE TP SCH ×2 (01:07→08:04)
[2019-10-17] MEDS: RT-ALBUTEROL SULF 2.5 MG/3 ML PRE-MIX VIAL INH SCH ×3 (02:47→14:51)
[2019-10-17 04:35] VITALS: BP 132/64
[2019-10-17] MEDS ORDERED: TROUGH ORDER-PHARMACY XX NR (06:30)
[2019-10-17] MEDS: inSUlin ASPART (NovoLOG) 1 UNIT/0.01 ML (CHARGE PER UNIT) SC SCH ×3 (06:36→16:09)
[2019-10-17] MEDS: LEVOTHYROXINE 50 MCG (LEVOTHROID) TAB PO SCH (06:45)
--- NOTE | 2019-10-17 06:58 | NUR ---
PTD VANCOMYCIN LABS: SCR 1.17(1.55) VANCOMYCIN LEVELS 10/15 @ 1827- 32; 10/02 @0602 - 21.4 PHARMACOKINETIC CALC. Kd 0.0335 T1/2 ~ 21 HOURS PLAN: CHANGE VANCOMYCIN TO 2,000MG IV [id number], NEXT DOSE @ 1500. WILL REPEAT LEVEL IN A FEW DAYS IF STILL ON THERAPY/IN HOSPITAL.
[2019-10-17 07:47] VITALS: BP 114/55
[2019-10-17] MEDS: ALLOPURINOL 100 MG (ZYLOPRIM) TAB PO SCH (08:03)
[2019-10-17] MEDS: PANTOPRAZOLE 40 MG (PROTONIX) TAB PO SCH (08:03)
[2019-10-17] MEDS: PRAMIPEXOLE 0.5 MG TAB (MIRAPEX) PO SCH ×2 (08:03→12:22)
[2019-10-17] MEDS: DULoxetine 30 MG (CYMBALTA) CAP PO SCH (08:03)
[2019-10-17] MEDS: BACLOFEN 10 MG (LIORESAL) TAB PO SCH ×2 (08:03→12:22)
[2019-10-17] MEDS: KCL 20 MEQ TAB (K-DUR) PO SCH (08:03)
[2019-10-17] MEDS: oxyCODONE/APAP 7.5-325 MG (PERCOCET 7.5) TABLET PO PRN (08:53)
--- NOTE | 2019-10-17 09:29 | Discharge Summary ---
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 Discharge Summary Procedures/Consulations Dr Gamble- Wound Care Discharge Physical Exam Allergies: Coded Allergies: diphenhydramine (Verified Allergy, Unknown, 10/15/19) RESTLESS LEGSSD Vitals & I&Os Vital Signs Date Time Temp Pulse Resp B/P (MAP) Pulse Ox O2 Delivery O2 Flow Rate FiO2 10/17/19 07:47 37.0 86 20 114/55 (74) 91 Nasal Cannula 3.00 10/15/19 12:24 36 General Appearance: Chronically ill, Obese Cardiovascular: Regular Rate, Rhythm Gastrointestinal: Normal Bowel Sounds, Soft Neurologic/Psychiatric: Alert, Oriented x3 Hospital Course Pt was admitted to the hospital for cellulitis after failing outpatient treatment. She was started on broad spectrum antibiotics and improved significantly. She was found to be mildly hypoxic and was tested for oxygen which found . She was discharged back to her care home on Keflex and Bactrim. She was seen by wound care as well. I called and spoke with her PCP Dr Beck to update him on her hospital course as well. Labs (last 24 hrs) Laboratory Tests 10/16/19 10:42: Glucometer 128H 10/16/19 13:10: Coronavirus (COVID-19)(PCR) Negative 10/16/19 15:31: Glucometer 130H 10/16/19 18:27: Vancomycin Level Trough 32.0*H 10/16/19 20:32: Glucometer 152H 10/17/19 05:50: Glucometer 119H 10/17/19 06:02: Vancomycin Level Trough 21.4H Microbiology 10/15/19 Blood Culture - Preliminary, Resulted No growth Patient resulted labs reviewed. Pending Labs Laboratory Tests 10/17/19 05:50: Glucometer 119 10/17/19 06:02: Vancomycin Level Trough 21.4 Discussion & Recommendations Discharge Planning: >30 minutes discharge planning Discharge Home Medications: Active Scripts Active Reported Fentanyl Patch 75MCG (Fentanyl) 1 Each Patch.td72 75 Mcg TD Q72H Protonix (Pantoprazole Sodium) 40 Mg Tablet.dr 40 Mg PO DAILY Potassium Chloride 10 Meq Tab.er.prt 20 Meq PO DAILY TAKE TWO TABLETS Nystatin 15 Gm Oint...g. 1 Applic TP BID Endocet 7.5-325 mg Tablet (Oxycodone HCl/Acetaminophen) 1 Each Tablet 1 Each PO Q6H PRN Mirapex (Pramipexole Di-HCl) 1 Mg Tablet 1 Mg PO TID Metolazone 2.5 Mg Tablet 2.5 Mg PO DAILY Metformin HCl 500 Mg Tablet 500 Mg PO DAILY Levothyroxine Sodium 50 Mcg Tablet 50 Mcg PO DAILY Ibuprofen 200 Mg Capsule 200 Mg PO Q6H PRN Diclofenac Sodium 100 Gm Gel..gram. 1 Applic TD QID PRN APPLY 4 GRAMS TO EACH KNEE NOT TO EXCEED 32 GRAMS PER DAY Warfarin Sodium 5 Mg Tablet 5 Mg PO SUN Tue TAKE ONE TABLET IN THE EVENING OF EVERY TUESDAY, TUESDAY, TUESDAY, TUESDAY AND TUESDAY FOR DVT Warfarin Sodium 10 Mg Tablet 10 Mg PO TUESDAY AND TUESDAY TAKE ONE TABLET IN THE EVENING OF EVERY TUESDAY AND TUESDAY Baclofen 10 Mg Tablet 10 Mg PO QID Lasix (Furosemide) 40 Mg Tablet 40 Mg PO DAILY Cymbalta (Duloxetine HCl) 30 Mg Capsule.dr 30 Mg PO DAILY Allopurinol 100 Mg Tablet 100 Mg PO BID Cipro (Ciprofloxacin HCl) 500 Mg Tablet 500 Mg PO BID HAS A 14 DAY SUPPLY. FILLED ON 10/09/2019. Instructions to patient/family Please see electronic discharge instructions given to patient. Clinical Quality Measures DVT/VTE Risk/Contraindication: Risk Factor Score Per Nursin RFS Level Per Nursing on Admit: 4+=Very High Copy Copies To 1: KARMA BECK DO Problem Qualifiers (1) Hypothyroidism: Hypothyroidism type: unspecified Qualified Codes: E03.9 - Hypothyroidism, unspecified SALAS CISNEROS MD Oct 17, 2019 09:29
[2019-10-17] MEDS ORDERED: CEPH-507 PO (09:32)
[2019-10-17] MEDS ORDERED: SULF1TAB35 PO (09:32)
[2019-10-17] MEDS ORDERED: LACT1CAP62 PO (09:32)
--- NOTE | 2019-10-17 09:32 | Discharge Summary ---
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.0-3.0 Discharge Summary Discharge Physical Exam Allergies: Coded Allergies: diphenhydramine (Verified Allergy, Unknown, 10/15/19) RESTLESS LEGSSD Vitals & I&Os Vital Signs Date Time Temp Pulse Resp B/P (MAP) Pulse Ox O2 Delivery O2 Flow Rate FiO2 10/17/19 07:47 37.0 86 20 114/55 (74) 91 Nasal Cannula 3.00 10/15/19 12:24 36 Hospital Course Labs (last 24 hrs) Laboratory Tests 10/16/19 10:42: Glucometer 128H 10/16/19 13:10: Coronavirus (COVID-19)(PCR) Negative 10/16/19 15:31: Glucometer 130H 10/16/19 18:27: Vancomycin Level Trough 32.0*H 10/16/19 20:32: Glucometer 152H 10/17/19 05:50: Glucometer 119H 10/17/19 06:02: Vancomycin Level Trough 21.4H Microbiology 10/15/19 Blood Culture - Preliminary, Resulted No growth Patient resulted labs reviewed. Pending Labs Laboratory Tests 10/17/19 05:50: Glucometer 119 10/17/19 06:02: Vancomycin Level Trough 21.4 Discussion & Recommendations Discharge Planning: >30 minutes discharge planning Discharge Home Medications: Active Scripts Active Reported Fentanyl Patch 75MCG (Fentanyl) 1 Each Patch.td72 75 Mcg TD Q72H Protonix (Pantoprazole Sodium) 40 Mg Tablet.dr 40 Mg PO DAILY Potassium Chloride 10 Meq Tab.er.prt 20 Meq PO DAILY TAKE TWO TABLETS Nystatin 15 Gm Oint...g. 1 Applic TP BID Endocet 7.5-325 mg Tablet (Oxycodone HCl/Acetaminophen) 1 Each Tablet 1 Each PO Q6H PRN Mirapex (Pramipexole Di-HCl) 1 Mg Tablet 1 Mg PO TID Metolazone 2.5 Mg Tablet 2.5 Mg PO DAILY Metformin HCl 500 Mg Tablet 500 Mg PO DAILY Levothyroxine Sodium 50 Mcg Tablet 50 Mcg PO DAILY Ibuprofen 200 Mg Capsule 200 Mg PO Q6H PRN Diclofenac Sodium 100 Gm Gel..gram. 1 Applic TD QID PRN APPLY 4 GRAMS TO EACH KNEE NOT TO EXCEED 32 GRAMS PER DAY Warfarin Sodium 5 Mg Tablet 5 Mg PO SUN Tue TAKE ONE TABLET IN THE EVENING OF EVERY TUESDAY, TUESDAY, TUESDAY, TUESDAY AND TUESDAY FOR DVT Warfarin Sodium 10 Mg Tablet 10 Mg PO TUESDAY AND TUESDAY TAKE ONE TABLET IN THE EVENING OF EVERY TUESDAY AND TUESDAY Baclofen 10 Mg Tablet 10 Mg PO QID Lasix (Furosemide) 40 Mg Tablet 40 Mg PO DAILY Cymbalta (Duloxetine HCl) 30 Mg Capsule.dr 30 Mg PO DAILY Allopurinol 100 Mg Tablet 100 Mg PO BID Cipro (Ciprofloxacin HCl) 500 Mg Tablet 500 Mg PO BID HAS A 14 DAY SUPPLY. FILLED ON 10/09/2019. Instructions to patient/family Please see electronic discharge instructions given to patient. Clinical Quality Measures DVT/VTE Risk/Contraindication: Risk Factor Score Per Nursin RFS Level Per Nursing on Admit: 4+=Very High Problem Qualifiers (1) Hypothyroidism: Hypothyroidism type: unspecified Qualified Codes: E03.9 - Hypothyroidism, unspecified SALAS CISNEROS MD Oct 17, 2019 09:32
--- NOTE | 2019-10-17 09:34 | Discharge Inst-Simple/Standard ---
Discharge Inst-Standard Reconcile Patient Problems Problems Reviewed?: Yes Discharge Medications New, Converted or Re-Newed RX: Transmitted to Pharmacy Patient Instructions/Follow Up Plan of Care/Instructions/FU: Please continue to take your medications as written. Please follow up with your primary care doctor within the n ext week to follow up this hospital stay. Activity as Tolerated: Yes Discharge Diet: Low Sodium Diet Return to The Hospital For: Chest pain, shortness of breath, fever, worsening pain, if you feel you are getting worse. SALAS CISNEROS MD Oct 17, 2019 09:34
--- NOTE | 2019-10-17 09:47 | Physical Therapy Daily Note ---
PT Daily Note-Current Subjective Pt presents supine in bed, reporting 10/10 pain in B legs. Pt refuses any OOB activity due to pain, but agrees to complete bed exercises. Appearance Following session, pt is supine in bed, call light and tray within reach. All needs met. Mental Status Patient Orientation: Person, Place, Situation Attachments: Oxygen, Palencia Catheter Transfers SCALE: Activities may be completed with or without assistive devices. 6-Gmxdtjyoqq-xsmyzre completes the activity by him/herself with no assistance from a helper. 5-Set-up or Clean-up Assistance-helper sets up or cleans up; patient completes activity. [place] assists only prior to or following the activity. 4-Supervision or Touching Assistance-helper provides verbal cues and/or touching/steadying and/or contact guard assistance as patient completes activity. Assistance may be provided throughout the activity or intermittently. 3-Partial/Moderate Assistance-helper does LESS THAN HALF the effort. [place] lifts, holds or supports trunk or limbs, but provides less than half the effort. 2-Substantial/Maximal Assistance-helper does MORE THAN HALF the effort. [place] lifts or holds trunk or limbs and provides more than half the effort. 1-Xwvqdbvlg-pjvarx does ALL the effort. Patient does none of the effort to complete the activity. Or, the assistance of 2 or more helpers is required for the patient to complete the activity. If activity was not attempted, code reason: 7-Patient Refused. 9-Not Applicable-not attempted and the patient did not perform the activity before the current illness, exacerbation or injury. 10-Not Attempted due to Environmental Limitations-(lack of equipment, weather restraints, etc.). 88-Not Attempted due to Medical Conditions or Safety Concerns. Weight Bearing Right Lower Extremity: Right Weight Bearing/Tolerated Left Lower Extremity: Left Weight Bearing/Tolerated Exercises Supine Ex: Ankle pumps, Quad Set, Glut sets, Short Arc Quads Supine Reps: 15 Treatments Pt completed supine LE exercises, and refused OOB activity due to LE pain. Assessment Current Status: Fair Progress Pt with increased pain this visit which limited OOB activity. Pt requires assistance with SAQ exercises and reports severe pain with all exercises. Will continue to progress activity as pt tolerates. PT Certified Orthotist Goals Half-Way Goals PT Half-Way Goals Time Frame: Oct 27, 2019 Roll Left & Right (QC): 4 Sit to Lying (QC): 4 Lying-Sitting on Side/Bed(QC): 4 Sit to Stand (QC): 5 Chair/Aqq-aj-Xnfhf Xfer(QC): 5 Toilet Transfer (QC): 5 Does the Patient Walk: Yes Walk 10 feet (QC): 5 PT Plan Problem List Problem List: Activity Tolerance, Functional Strength, Safety, Balance, Gait, Transfer, Bed Mobility Treatment/Plan Treatment Plan: Continue Plan of Care Treatment Plan: Bed Mobility, Education, Functional Activity Ashvni, Functional Strength, Gait, Safety, Therapeutic Exercise, Transfers Treatment Duration: Oct 27, 2019 Frequency: 6 times per week Estimated Hrs Per Day: .25 hour per day Patient and/or Family Agrees t: Yes Time/GCodes Time In: 835 Time Out: 848 Total Billed Treatment Time: 13 Total Billed Treatment 1 visit 1 EX (13 min) NENA TIWARI PT Oct 17, 2019 09:47
--- NOTE | 2019-10-17 10:25 | NUR ---
Pt was taken off O2 at rest and dropped O2 sat to 87% after 2 mins. Pt was placed back on 3 LNC and O2 returned to 92%. Pt unable to walk at this time. Addendum: 10/17/19 at 1026 by MARIA ESTHER BIRD RT Amended: Links added.
--- NOTE | 2019-10-17 11:05 | NUR ---
CM/SS finalized discharge. Plan: Patient is to discharge to [facility] [place] at 1:00 p.m. with new oxygen. FLORY/SS contacted Joselyn to inform her of patient qualifying for 3L NC continuos. She verbalized understanding and stated she will have them bring over a portable tank. CM/SS faxed finalized discharge, oxygen script, o2 sats, and additional clinical. FLORY/SS informed the patients primary care nurse of planned discharge time. No further needs at this time.
[2019-10-17] MEDS ORDERED: VANCOMYCIN 2000 MG/NS 500 ML IVPB IV SCH ×2 (15:00)
== END 2019-10-17 16:15 | DRG 603 ==
LOC: ER 05:56 → 4TH 10:01
PROVIDERS: ADMIT Family Medicine; ATTEND Family Medicine
DX: L03.115 Cellulitis of right lower limb (principal); L97.219 Non-pressure chronic ulcer of right calf with unspecified severity; L97.229 Non-pressure chronic ulcer of left calf with unspecified severity; N17.9 Acute kidney failure, unspecified; Z68.44 Body mass index [BMI] 60.0-69.9, adult; I89.0 Lymphedema, not elsewhere classified; I87.2 Venous insufficiency (chronic) (peripheral); E11.622 Type 2 diabetes mellitus with other skin ulcer; R09.02 Hypoxemia; E03.9 Hypothyroidism, unspecified; G47.30 Sleep apnea, unspecified; E66.01 Morbid (severe) obesity due to excess calories; R06.03 Acute respiratory distress; K21.9 Gastro-esophageal reflux disease without esophagitis; M79.7 Fibromyalgia; Z79.01 Long term (current) use of anticoagulants; Z86.718 Personal history of other venous thrombosis and embolism; Z86.711 Personal history of pulmonary embolism; Z87.891 Personal history of nicotine dependence; Z20.828 Contact with and (suspected) exposure to other viral communicable diseases; A49.01 Methicillin susceptible Staphylococcus aureus infection, unspecified site
CPT/HCPCS: 36415; 71045; 80053; 80202; 82805; 82962; 83880; 84484; 85025; 85610; 85730; 87040; 87635; 93005; 94640; 94660; 94760; 94761

== ENCOUNTER → 2019-11-20 | Outpatient (CLI) | payer MEDICAID ==
[~2019-11-20] MED LIST: ALLO100T PO; BACL10TA PO; BACL20TA PO; CEPH-507 PO; CIPR-225 PO; DICL100G31 TD; DICL50TA6 PO; DULO30CA3 PO; FENT1PAT TD; FENT1PAT10 TD; FURO-124 PO; IBUP-2185 PO; LACT1CAP62 PO; LEVO50TA6 PO; LEVO75TA PO; METF-397 PO; METF500S5 PO; METO10TA7 PO; METO2.5T PO; NYST15OI13 TP; NYST1POW24 MC; OXYC-190 PO; OXYC10TA7 PO; PANT40SU PO; PANT40TA2 PO; POTA10TA36 PO; POTA99TA21 PO; PRAM0.5T2 PO; PRAM1TAB2 PO; SULF1TAB35 PO; WARF-48 PO; WARF4TAB PO; WRF10T PO
== END ==
LOC: WOUNDCARE 15:56
PROVIDERS: ATTEND Surgery
DX: I89.0 Lymphedema, not elsewhere classified (principal); L97.322 Non-pressure chronic ulcer of left ankle with fat layer exposed; E66.01 Morbid (severe) obesity due to excess calories; M62.84 Sarcopenia; M62.3 Immobility syndrome (paraplegic); I96 Gangrene, not elsewhere classified

== ENCOUNTER → 2019-12-07 | Outpatient (CLI) | payer MEDICAID | LOC: WOUNDCARE 11:30 | PROVIDERS: ATTEND Surgery | DX: I89.0 Lymphedema, not elsewhere classified (principal); L97.322 Non-pressure chronic ulcer of left ankle with fat layer exposed; E66.01 Morbid (severe) obesity due to excess calories; M62.84 Sarcopenia; M62.3 Immobility syndrome (paraplegic); I96 Gangrene, not elsewhere classified; Z20.828 Contact with and (suspected) exposure to other viral communicable diseases ==

== ENCOUNTER → 2019-12-26 | Outpatient (CLI) | payer MEDICAID | LOC: WOUNDCARE 12-19 16:01 | PROVIDERS: ATTEND Surgery | DX: I96 Gangrene, not elsewhere classified (principal); M62.84 Sarcopenia; L97.222 Non-pressure chronic ulcer of left calf with fat layer exposed; L97.322 Non-pressure chronic ulcer of left ankle with fat layer exposed; E66.01 Morbid (severe) obesity due to excess calories; G82.20 Paraplegia, unspecified; Z68.45 Body mass index [BMI] 70 or greater, adult ==

== ENCOUNTER → 2020-01-09 | Outpatient (CLI) | payer MEDICAID | LOC: WOUNDCARE 11:30 | PROVIDERS: ATTEND Surgery | DX: I89.0 Lymphedema, not elsewhere classified (principal); L97.222 Non-pressure chronic ulcer of left calf with fat layer exposed; L97.322 Non-pressure chronic ulcer of left ankle with fat layer exposed; E66.01 Morbid (severe) obesity due to excess calories; M62.84 Sarcopenia; M62.3 Immobility syndrome (paraplegic); I96 Gangrene, not elsewhere classified; Z20.828 Contact with and (suspected) exposure to other viral communicable diseases ==

== ENCOUNTER → 2020-01-22 | Outpatient (CLI) | payer MEDICAID | LOC: WOUNDCARE 11:00 → EDBD 11:00 | PROVIDERS: ATTEND Surgery | DX: I89.0 Lymphedema, not elsewhere classified (principal); L97.222 Non-pressure chronic ulcer of left calf with fat layer exposed; L97.322 Non-pressure chronic ulcer of left ankle with fat layer exposed; L97.312 Non-pressure chronic ulcer of right ankle with fat layer exposed; E66.01 Morbid (severe) obesity due to excess calories; M62.84 Sarcopenia; M62.3 Immobility syndrome (paraplegic); Z68.45 Body mass index [BMI] 70 or greater, adult; Z87.891 Personal history of nicotine dependence; Z88.8 Allergy status to other drugs, medicaments and biological substances; G47.30 Sleep apnea, unspecified; F32.9 Major depressive disorder, single episode, unspecified; E03.9 Hypothyroidism, unspecified ==

== ENCOUNTER 2020-01-31 14:30 | Observation (INO) | payer MEDICAID ==
[~2020-01-31] VITALS: Ht 172.7 cm; Wt 199.9 kg
[2020-01-31 14:50] LABS: BASOPHILS # (AUTO) 0.1 10^3/uL (0.0-0.1); BASOPHILS % (AUTO) 1 % (0-10); EOSINOPHILS # (AUTO) 0.5 10^3/uL (0.0-0.3); EOSINOPHILS % (AUTO) 7 % (0-10); HEMATOCRIT 36 % (35-52); HEMOGLOBIN 11.2 g/dL (11.5-16.0); LYMPHOCYTES # (AUTO) 1.1 10^3/uL (1.0-4.0); LYMPHOCYTES % (AUTO) 15 % (12-44); MEAN CORPUSCULAR HEMOGLOBIN 28 pg (25-34); MEAN CORPUSCULAR HGB CONC 32 g/dL (32-36); MEAN CORPUSCULAR VOLUME 90 fL (80-99); MEAN PLATELET VOLUME 9.2 fL (9.0-12.2); MONOCYTES # (AUTO) 0.6 10^3/uL (0.0-1.0); MONOCYTES % (AUTO) 8 % (0-12); NEUTROPHILS # (AUTO) 5.4 10^3/uL (1.8-7.8); NEUTROPHILS % (AUTO) 70 % (42-75); PLATELET COUNT 433 10^3/uL (130-400); WHITE BLOOD COUNT 7.8 10^3/uL (4.3-11.0)
[2020-01-31 15:01] LABS: POTASSIUM 6.1 MMOL/L (3.6-5.0)
[2020-01-31 15:03] LABS: CALCIUM 9.5 MG/DL (8.5-10.1)
[2020-01-31 15:05] LABS: INR 2.7 (0.8-1.4); PROTHROMBIN TIME PATIENT 28.7 SEC (12.2-14.7)
[2020-01-31 15:07] LABS: CREATININE SERUM 1.6 MG/DL (0.60-1.30)
[2020-01-31] MEDS ORDERED: SODIUM BICARB 8.4% 50 MEQ/50 ML VIAL IV ONE (15:30)
[2020-01-31] MEDS ORDERED: DEXTROSE 50% 50 ML (IMS) SYR IV ONE (15:30)
[2020-01-31] MEDS ORDERED: inSUlin (REGULAR) HUMAN 1 UNIT/0.01 ML (CHARGE PER UNIT) SC ONE (15:30)
--- NOTE | 2020-01-31 15:44 | ED General ---
General Chief Complaint: General Problems/Pain Stated Complaint: HIGH POTASSIUM Nursing Triage Note: Pt to ED via EMS from [facility] for high potassium levels. EMS reports yesterday levels were 6.6 and today's level was 6.1. Pt has bilateral weeping wounds to lower extremeties. Nursing Sepsis Screen: No Definite Risk Source of Information: Patient Exam Limitations: No Limitations History of Present Illness Date Seen by Provider: Jan 31, 2020 Time Seen by Provider: 14:15 Initial Comments Patient is a 54-year-old female who presents to the emergency room today with a chief complaint of elevated serum potassium. Patient resides at a local fdc and has been having daily labs drawn. It was noted yesterday and today that the patient's potassium level was above 6.0. Patient herself has no complaints at this time other than she has chronic lymphedema and drainage from wounds on her bilateral lower extremities. Patient denies any chest pain, shortness of breath, abdominal pain, nausea, vomiting, diarrhea. Patient denies any recent febrile illnesses, cough, congestion, nasal drainage. All other review of systems reviewed and negative except as stated above. Timing/Duration: 2-3 Days Allergies and Home Medications Allergies Coded Allergies: diphenhydramine (Verified Allergy, Unknown, 10/15/19) RESTLESS LEGSSD Home Medications Allopurinol 100 Mg Tablet, 100 MG PO BID, (Reported) Baclofen 10 Mg Tablet, 10 MG PO QID, (Reported) Cephalexin 500 Mg Capsule, 500 MG PO BID Prescribed by: SALAS CISNEROS on [birth year]/17/1932 Diclofenac Sodium 100 Gm Gel..gram., 1 APPLIC TD QID PRN for PAIN-BREAKTHROUGH, (Reported) APPLY 4 GRAMS TO EACH KNEE NOT TO EXCEED 32 GRAMS PER DAY Duloxetine HCl 30 Mg Capsule.dr, 30 MG PO DAILY, (Reported) Fentanyl 1 Each Patch.td72, 75 MCG TD Q72H, (Reported) Furosemide 40 Mg Tablet, 40 MG PO DAILY, (Reported) Ibuprofen 200 Mg Capsule, 200 MG PO Q6H PRN for PAIN-MILD (1-4), (Reported) Lactobacillus Acidophilus 1 Each Capsule, 1 EACH PO TIDWM Prescribed by: SALAS CISNEROS on 10/17/1932 Levothyroxine Sodium 50 Mcg Tablet, 50 MCG PO DAILY, (Reported) Metformin HCl 500 Mg Tablet, 500 MG PO DAILY, (Reported) Metolazone 2.5 Mg Tablet, 2.5 MG PO DAILY, (Reported) Nystatin 15 Gm Oint...g., 1 APPLIC TP BID, (Reported) Oxycodone HCl/Acetaminophen 1 Each Tablet, 1 EACH PO Q6H PRN for PAIN-MODERATE (5-7), (Reported) Pantoprazole Sodium 40 Mg Tablet.dr, 40 MG PO DAILY, (Reported) Potassium Chloride 10 Meq Tab.er.prt, 20 MEQ PO DAILY, (Reported) TAKE TWO TABLETS Pramipexole Di-HCl 1 Mg Tablet, 1 MG PO TID, (Reported) Sulfamethoxazole/Trimethoprim 1 Each Tablet, 1 EACH PO BID Prescribed by: SALAS CISNEROS on 10/17/19 0932 Warfarin Sodium 10 Mg Tablet, 10 MG PO TUESDAY AND TUESDAY, (Reported) TAKE ONE TABLET IN THE EVENING OF EVERY TUESDAY AND TUESDAY Warfarin Sodium 5 Mg Tablet, 5 MG PO SUN Tue, (Reported) TAKE ONE TABLET IN THE EVENING OF EVERY TUESDAY, TUESDAY, TUESDAY, TUESDAY AND TUESDAY FOR DVT Patient Home Medication List Home Medication List Reviewed: Yes Review of Systems Review of Systems Constitutional: no symptoms reported EENTM: no symptoms reported Respiratory: no symptoms reported; No short of breath Cardiovascular: no symptoms reported Gastrointestinal: no symptoms reported Genitourinary: no symptoms reported : No Musculoskeletal: joint pain (right hip and thigh), muscle cramps Skin: lesions (bilateral lower extremities) Past Onheakv-Pzfrqc-Cvbsbd Hx Patient Social History Alcohol Use: Denies Use Recreational Drug Use: No Smoking Status: Former Smoker Type Used: Cigarettes 2nd Hand Smoke Exposure: No Recent Foreign Travel: No Contact w/Someone Who Travel: No Recent Infectious Disease Expo: No Recent Hopitalizations: No Physical Abuse: No Sexual Abuse: No Mistreated: No Fear: No Immunizations Up To Date Tetanus Booster (TDap): Unknown Date of Pneumonia Vaccine: Apr 04, 2019 Seasonal Allergies Seasonal Allergies: No Past Medical History Surgeries: Yes Appendectomy, Section, Gallbladder, Orthopedic Respiratory: Yes Sleep Apnea Cardiac: No Neurological: Yes Neuropathy Genitourinary: No Gastrointestinal: Yes Gastroesophageal Reflux Musculoskeletal: Yes Fibromyalgia Endocrine: Yes Diabetes, Non-Insulin dep HEENT: No Cancer: No Psychosocial: No Integumentary: Yes Recent Skin Changes Blood Disorders: No Physical Exam Vital Signs Vital Signs - First Documented 01/31/20 14:30 Temp 35.7 Pulse 76 Resp 20 B/P (MAP) 133/91 (105) Pulse Ox 97 O2 Delivery Room Air Capillary Refill : Less Than 3 Seconds Height, Weight, BMI Height: '" Weight: lbs. oz. kg; 68.00 BMI Method: General Appearance: No Apparent Distress, Obese Eyes: Bilateral Eye Normal Inspection, Bilateral Eye PERRL, Bilateral Eye EOMI Respiratory: Lungs Clear, Normal Breath Sounds, No Accessory Muscle Use, No Res piratory Distress Cardiovascular: Regular Rate, Rhythm, No Murmur Gastrointestinal: Normal Bowel Sounds, Non Tender, Other (morbid obsetiy ) Extremity: Inflammation, Pedal Edema, Other (2 open wounds to the left leg about 2cm diameter, most dorsal lesion actively draining copious amounts of clear serosanguinous fluids) Neurologic/Psychiatric: Alert, Oriented x3, No Motor/Sensory Deficits, Normal Mood/Affect Progress/Results/Core Measures Suspected Sepsis Recent Fever Within 48 Hours: No Infection Criteria Present: None New/Unexplained Altered Menta: No Sepsis Screen: No Definite Risk SIRS Temperature: Pulse: 76 Respiratory Rate: 20 Laboratory Tests 01/31/20 14:35: White Blood Count 7.8 Blood Pressure 133 /91 Mean: 105 Laboratory Tests 01/31/20 14:35: Creatinine 1.60H, INR Comment 2.7H, Platelet Count 433H Results/Orders Lab Results Laboratory Tests Test 01/31/20 14:35 Range/Units White Blood Count 7.8 4.3-11.0 10^3/uL Red Blood Count 3.96 3.80-5.11 10^6/uL Hemoglobin 11.2 L 11.5-16.0 g/dL Hematocrit 36 35-52 % Mean Corpuscular Volume 90 80-99 fL Mean Corpuscular Hemoglobin 28 25-34 pg Mean Corpuscular Hemoglobin Concent 32 32-36 g/dL Red Cell Distribution Width 17.2 H 10.0-14.5 % Platelet Count 433 H 130-400 10^3/uL Mean Platelet Volume 9.2 9.0-12.2 fL Immature Granulocyte % (Auto) 1 % Neutrophils (%) (Auto) 70 42-75 % Lymphocytes (%) (Auto) 15 12-44 % Monocytes (%) (Auto) 8 0-12 % Eosinophils (%) (Auto) 7 0-10 % Basophils (%) (Auto) 1 0-10 % Neutrophils # (Auto) 5.4 1.8-7.8 10^3/uL Lymphocytes # (Auto) 1.1 1.0-4.0 10^3/uL Monocytes # (Auto) 0.6 0.0-1.0 10^3/uL Eosinophils # (Auto) 0.5 H 0.0-0.3 10^3/uL Basophils # (Auto) 0.1 0.0-0.1 10^3/uL Immature Granulocyte # (Auto) 0.1 0.0-0.1 10^3/uL Prothrombin Time 28.7 H 12.2-14.7 SEC INR Comment 2.7 H 0.8-1.4 Sodium Level 127 L 135-145 MMOL/L Potassium Level 6.1 H 3.6-5.0 MMOL/L Chloride Level 97 L 98-107 MMOL/L Carbon Dioxide Level 19 L 21-32 MMOL/L Anion Gap 11 5-14 MMOL/L Blood Urea Nitrogen 50 H 7-18 MG/DL Creatinine 1.60 H 0.60-1.30 MG/DL Estimat Glomerular Filtration Rate 34 BUN/Creatinine Ratio 31 Glucose Level 133 H 70-105 MG/DL Calcium Level 9.5 8.5-10.1 MG/DL My Orders Orders - DAVID LEON MD Basic Metabolic Panel (01/31/20 14:43) Cbc With Automated Diff (01/31/20 14:43) Protime With Inr (01/31/20 14:43) Ed Iv/Invasive Line Start (01/31/20 14:43) D50w (Emergency) Syringe (Dextrose 50% 5 (01/31/20 15:30) Insulin (Regular) Human (Novolin R (Per (01/31/20 15:30) Sodium Bicarbonate 8.4% Vial (Sodium Bic (01/31/20 15:30) Ekg Tracing (01/31/20 15:23) Furosemide Injection (Lasix Injection) (01/31/20 15:45) Baclofen Tablet (Lioresal Tablet) (01/31/20 15:55) Medications Given in ED Current Medications Medications Dose Ordered Sig/Reymundo Route Start Time Stop Time Status Last Admin Dose Admin Dextrose 25 ml ONCE ONCE IV 01/31/20 15:30 01/31/20 15:31 DC 01/31/20 15:36 25 ML Insulin Human Regular 10 unit ONCE ONCE SC 01/31/20 15:30 01/31/20 15:31 DC 01/31/20 15:35 10 UNIT Sodium Bicarbonate 50 meq ONCE ONCE IV 01/31/20 15:30 01/31/20 15:31 DC 01/31/20 15:38 50 MEQ Vital Signs/I&O 01/31/20 14:30 Temp 35.7 Pulse 76 Resp 20 B/P (MAP) 133/91 (105) Pulse Ox 97 O2 Delivery Room Air Capillary Refill : Less Than 3 Seconds Blood Pressure Mean: 105 Progress Note : Time: 15:45 Progress Note 54-year-old female presents to the emergency room with a chief complaint of elevated potassium. Evaluation today includes a physical exam basic laboratory studies including a CBC BM 7 and PT/INR. An EKG was also obtained. EKG shows a normal sinus rhythm at 77 bpm with frequent PACs and supraventricular complexes. No ST segment elevations or depressions, no peaked T waves noted. Patient CBC is unremarkable patient's BM 7 is remarkable for a serum potassium of 6.1 and an elevated serum creatinine. Patient's INR is therapeutic. Case is discussed with Dr. Leger on for the hospitalist service. He graciously accepts this patient for observation admission and correction of her serum potassium issues. ECG Initial ECG Impression Date: Jan 31, 2020 Initial ECG Impression Time: 15:41 Initial ECG Rate: 77 Initial ECG Rhythm: Normal Sinus Initial ECG Impression: Normal Departure Communication (Admissions) Time/Spoke to Admitting Phy: 15:[address] Bland; Accepts patient for admission Observation Impression Primary Impression: Acute hyperkalemia Additional Impressions: Chronic renal disease Qualified Codes: N18.9 - Chronic kidney disease, unspecified Morbid obesity Disposition: 09 ADMITTED INPATIENT Condition: Stable Admissions Decision to Admit Reason: Admit from ER (General) Decision to Admit/Date: Jan 31, 2020 Time/Decision to Admit Time: 15:44 Departure-Patient Inst. Referrals: KARMA ALBERTS DO (PCP) Primary Care Physician DAVID LEON MD Jan 31, 2020 15:44
[2020-01-31] MEDS ORDERED: FUROSEMIDE 40 MG/4 ML INJ (LASIX) IVP ONE (15:45)
[2020-01-31] MEDS ORDERED: BACLOFEN 10 MG (LIORESAL) TAB PO STA (15:55)
--- NOTE | 2020-01-31 17:20 | NUR ---
NIRAV CAMPOS admitted to room 421-1, with an admitting diagnosis of HYPERKALEMIA, on 01/31/20 from ED via CART, accompanied by STAFF. NIRAV CAMPOS introduced to surroundings, call light, bed controls, phone, TV, temperature control, lights, meal times, smoking policy, visitor policy, side rail policy, bathrooms and showers. Patient Rights given to patient in the handbook. NIRAV CAMPOS verbalizes understanding that [facility] is not responsible for the loss or damage to any personal effects or valuables that are kept in the patients posession during their hospitalization. The following Patient Care Plans were discussed with the PT: Discharge Planning, PAIN, AND ELECTROLYTE IMBALANCE. NIRAV CAMPOS verbalizes understanding of Interdisciplinary Patient Education. Patient and/or family were informed about the Rapid Response Team and its purpose.
[2020-01-31] MEDS ORDERED: CATHETER FLUSH 10 ML SYR IV PRN (17:45)
[2020-01-31 17:51] VITALS: BP 130/83
--- NOTE | 2020-01-31 17:51 | NUR ---
OPEN WOUNDS NOTED ON LOWER LEGS. WEEPING, SKIN DISCOLORED. PT STATES SHE HAS OPEN SORES ON BACK OF HER THIGHS FROM SLIDING OUT OF BED AT [facility]. REFUSED TO TURN SO WOUNDS CAN BE ASSESSED.
[2020-01-31] MEDS ORDERED: warFARin 10 MG (COUMADIN) TAB PO SCH (18:00)
[2020-01-31] MEDS ORDERED: MELATONIN 3 MG TABLET PO PRN (19:15)
[2020-01-31] MEDS ORDERED: warFARin 10 MG (COUMADIN) TAB PO ONE (19:15)
[2020-01-31] MEDS ORDERED: ONDANSETRON 4 MG/2 ML (SDV) Z0FRAN IV PRN (19:15)
[2020-01-31] MEDS ORDERED: ACETAMINOPHEN 325 MG TABLET PO PRN (19:15)
[2020-01-31] MEDS ORDERED: oxyCODONE/APAP 5/325MG (PERCOCET 5) TABLET PO PRN (19:15)
[2020-01-31] MEDS ORDERED: ONDANSETRON 4 MG (ZOFRAN) ORAL DISSOLVE TAB PO PRN (19:15)
[2020-01-31] MEDS ORDERED: BISACODYL 10 MG SUPP (DULCOLAX) PR PRN (19:15)
[2020-01-31] MEDS ORDERED: polyethylene glycoL POWDER 17 GM (MIRALAX) PACK PO PRN (19:15)
[2020-01-31 20:00] VITALS: BP 127/80
[2020-01-31] MEDS: DOCUSATE SODIUM 100 MG (COLACE) CAP PO SCH (20:07)
[2020-01-31] MEDS: SENNOSIDES 8.6 MG (SENOKOT) TAB PO SCH (20:07)
[2020-01-31] MEDS: oxyCODONE/APAP 10/325MG (PERCOCET 10) TABLET PO PRN (20:10)
[2020-01-31] MEDS: PRAMIPEXOLE 0.5 MG TAB (MIRAPEX) PO SCH (20:10)
[2020-01-31] MEDS ORDERED: inSUlin ASPART (NovoLOG) 1 UNIT/0.01 ML (CHARGE PER UNIT) SC SCH (21:00)
[2020-01-31] MEDS: inSUlin ASPART (NovoLOG) 1 UNIT/0.01 ML (CHARGE PER UNIT) SC SCH (22:23)
[2020-01-31] MEDS: CATHETER FLUSH 10 ML SYR IV SCH (22:23)
[2020-01-31 23:32] VITALS: BP 111/54
[2020-02-01] MEDS: oxyCODONE/APAP 10/325MG (PERCOCET 10) TABLET PO PRN ×4 (00:40→12:27)
[2020-02-01 03:36] VITALS: BP 123/75
[2020-02-01 06:21] LABS: ALBUMIN 3.3 GM/DL (3.2-4.5); POTASSIUM 4.4 MMOL/L (3.6-5.0)
[2020-02-01 06:23] LABS: CALCIUM 9.2 MG/DL (8.5-10.1)
[2020-02-01 06:24] LABS: TOTAL PROTEIN 7.7 GM/DL (6.4-8.2)
[2020-02-01 06:26] LABS: BILIRUBIN,TOTAL 0.4 MG/DL (0.1-1.0)
[2020-02-01 06:27] LABS: CREATININE SERUM 1.46 MG/DL (0.60-1.30)
[2020-02-01] MEDS: inSUlin ASPART (NovoLOG) 1 UNIT/0.01 ML (CHARGE PER UNIT) SC SCH ×2 (06:28→12:00)
[2020-02-01] MEDS ORDERED: LEVOTHYROXINE 50 MCG (LEVOTHROID) TAB PO SCH ×2 (06:30)
[2020-02-01] MEDS: CATHETER FLUSH 10 ML SYR IV SCH (06:33)
[2020-02-01 07:25] VITALS: BP 129/66
[2020-02-01] MEDS ORDERED: metFORMIN 500 MG (GLUCOPHAGE) TAB PO SCH (08:00)
[2020-02-01] MEDS: SENNOSIDES 8.6 MG (SENOKOT) TAB PO SCH (08:07)
[2020-02-01] MEDS: DOCUSATE SODIUM 100 MG (COLACE) CAP PO SCH (08:07)
[2020-02-01] MEDS: PRAMIPEXOLE 0.5 MG TAB (MIRAPEX) PO SCH ×2 (08:08→12:21)
[2020-02-01] MEDS ORDERED: FUROSEMIDE 40 MG/4 ML INJ (LASIX) IVP SCH (09:00)
[2020-02-01] MEDS ORDERED: METOLAZONE 2.5 MG (ZAROXOLYN) TAB PO SCH (09:00)
[2020-02-01] MEDS ORDERED: PANTOPRAZOLE 40 MG (PROTONIX) TAB PO SCH (09:00)
[2020-02-01] MEDS ORDERED: DULoxetine 30 MG (CYMBALTA) CAP PO SCH (09:00)
[2020-02-01] MEDS ORDERED: SILV50CR28 TOP ×2 (10:03)
[2020-02-01] MEDS ORDERED: ACET325T38 PO ×2 (10:03)
[2020-02-01] MEDS ORDERED: PRAM1TAB5 PO ×2 (10:03)
[2020-02-01] MEDS ORDERED: OXYC-525 PO ×2 (10:03)
[2020-02-01] MEDS ORDERED: WRF10T PO ×2 (10:03)
--- NOTE | 2020-02-01 10:23 | NUR ---
THE MED REC HAS BEEN ENTERED USING THE MAR FROM [facility]\ I CALLED THE FACILITY TO CLARIFY THE PTS PAIN MEDICATIONS- I WAS TOLD THE PT IS NO LONGER USING FENTANYL PATCHES OR PERCOCET AND IS ONLY USING THE OXYCODONE 15MG Q6H PRN (ACCORDING TO THE NURSE THIS IS NO LONGER SCHEDULED).
--- NOTE | 2020-02-01 10:27 | NUR ---
DR DALTON ASKED FOR NURSE DIRECTOR OF GLOBAL MARKETING TO CALL DR HO RE PT REQUESTING TO SEE HIM. THIS RN CALLED DR HO AND HE SAID HE COULD COME SEE HER AT 1400 TODAY BUT IF SHE HAD TO LEAVE BEFORE THAT IT WAS OK BC HE SEES HER VIA TELEHEALTH AT [facility].
[2020-02-01] MEDS ORDERED: FUROSEMIDE 40 MG (LASIX) TAB PO ONE (10:30)
[2020-02-01 11:30] VITALS: BP 141/73
--- NOTE | 2020-02-01 11:30 | NUR ---
Pt is Jehovah Witness and has their spiritual support. Spanish Interpreter/Translator offered blessing.
--- NOTE | 2020-02-01 12:14 | NUR ---
FLORY/MARIAM visited with patient for discharge planning. Plan: Patient is discharging back to [facility] long term today 01/31. [facility]: DANILO Rees contacted facility to set up filler picker time. They informed her that she will need EMS. FLORY/MARIAM filled out EMS form and provided to the nurse. Discharge faxed to facility. FLORY/MARIAM informed the patient of discharge. She verbalized understanding. She reports this sw does not need to call her daughter at this time.
--- NOTE | 2020-02-01 12:15 | Discharge Summary ---
Discharge Summary Hospital Course Was the Problem List Reviewed?: Yes Problems/Dx: (1) Acute hyperkalemia Status: Acute (2) Chronic renal disease Status: Chronic Qualifiers: Qualified Codes: N18.3 - Chronic kidney disease, stage 3 (moderate) Hospital Course Date of Admission: Jan 31, 2020 at 16:34 Admission Diagnosis: Acute hyperkalemia Family Physician/Provider: Date of Discharge: 02/01/20 Discharge Diagnosis: Acute hyperkalemia Hospital Course: Alejandro Mendez is a 54-year-old female who was admitted with acute hyp erkalemia. Her potassium at been elevated above 6 during outpatient checks. Upon her arrival her potassium was 6.1. She was treated with insulin and Lasix. Her potassium improved to 4.4 the following morning. She has been taking a 20 mEq potassium supplement as an outpatient. This was discontinued. She should have a repeat BMP on Tuesday. She should follow-up with her primary care physician in about a week. Labs and Pending Lab Test: Laboratory Tests 01/31/20 14:35: White Blood Count 7.8, Red Blood Count 3.96, Hemoglobin 11.2L, Hematocrit 36, Mean Corpuscular Volume 90, Mean Corpuscular Hemoglobin 28, Mean Corpuscular Hemoglobin Concent 32, Red Cell Distribution Width 17.2H, Platelet Count 433H, Mean Platelet Volume 9.2, Immature Granulocyte % (Auto) 1, Neutrophils (%) (Auto) 70, Lymphocytes (%) (Auto) 15, Monocytes (%) (Auto) 8, Eosinophils (%) (Auto) 7, Basophils (%) (Auto) 1, Neutrophils # (Auto) 5.4, Lymphocytes # (Auto) 1.1, Monocytes # (Auto) 0.6, Eosinophils # (Auto) 0.5H, Basophils # (Auto) 0.1, Immature Granulocyte # (Auto) 0.1, Prothrombin Time 28.7H, INR Comment 2.7H, S odium Level 127L, Potassium Level 6.1H, Chloride Level 97L, Carbon Dioxide Level 19L, Anion Gap 11, Blood Urea Nitrogen 50H, Creatinine 1.60H, Estimat Glomerular Filtration Rate 34, BUN/Creatinine Ratio 31, Glucose Level 133H, Calcium Level 9.5 01/31/20 20:32: Glucometer 92 02/01/20 05:53: Sodium Level 130L, Potassium Level 4.4, Chloride Level 99, Carbon Dioxide Level 19L, Anion Gap 12, Blood Urea Nitrogen 45H, Creatinine 1.46H, Estimat Glomerular Filtration Rate 37, BUN/Creatinine Ratio 31, Glucose Level 99, Calcium Level 9.2, Corrected Calcium 9.8, Total Bilirubin 0.4, Aspartate Amino Transf (AST/SGOT) 20, Alanine Aminotransferase (ALT/SGPT) 21, Alkaline Phosphatase 116, Total Protein 7.7, Albumin 3.3 02/01/20 11:42: Glucometer 134H Home Meds Active Reported Silver Sulfadiazine 50 Gm Cream..g. 1 Applic TOP BID APPLY TO BILATERAL ANKLE/LEFT BYRD ULCER Tylenol (Acetaminophen) 325 Mg Tablet 650 Mg PO Q4H PRN Pramipexole Dihydrochloride (Pramipexole Di-HCl) 1 Mg Tablet 1 Mg PO 0900,1200,1700 Oxycodone HCl 15 Mg Tablet 15 Mg PO Q6H PRN Warfarin Sodium 10 Mg Tablet 5 Mg PO THUR TAKES OF 10MG TAB AT 1700 Protonix (Pantoprazole Sodium) 40 Mg Tablet.dr 40 Mg PO DAILY Nystatin 15 Gm Oint...g. 1 Applic TP BID Metolazone 2.5 Mg Tablet 2.5 Mg PO DAILY Metformin HCl 500 Mg Tablet 500 Mg PO DAILY Levothyroxine Sodium 50 Mcg Tablet 50 Mcg PO DAILY Ibuprofen 200 Mg Capsule 200 Mg PO Q6H PRN Diclofenac Sodium 100 Gm Gel..gram. 1 Applic TD Q6H PRN APPLY 4 GRAMS TO EACH KNEE NOT TO EXCEED 32 GRAMS PER DAY Warfarin Sodium 10 Mg Tablet 10 Mg PO PETIT,MO,TU,WE,FR,SA TAKES AT 1700 ON SUN,TUE,TUE,WEF,TUE,SAT Baclofen 10 Mg Tablet 10 Mg PO QID Lasix (Furosemide) 40 Mg Tablet 40 Mg PO DAILY Cymbalta (Duloxetine HCl) 30 Mg Capsule.dr 30 Mg PO DAILY Allopurinol 100 Mg Tablet 100 Mg PO BID Assessment/Pt Instructions Take medications as prescribed. Stop taking potassium supplements. Repeat labs early next week. Follow up with your PCP. Discharge Planning: <30 minutes discharge planning Discharge Instructions Discharge Diet: No Restrictions Activity as Tolerated: Yes Discharge Physical Examination Vital Signs Vital Signs Date Time Temp Pulse Resp B/P (MAP) Pulse Ox O2 Delivery O2 Flow Rate FiO2 02/01/20 11:30 36.4 74 16 141/73 (95) 94 Room Air General Appearance: No Apparent Distress, Obese Respiratory: Lungs Clear, Normal Breath Sounds, No Respiratory Distress Cardiovascular: Regular Rate, Rhythm, No Edema, No Murmur Gastrointestinal: Normal Bowel Sounds, Non Tender, Soft Extremity: Normal Inspection, Non Tender, Inflammation, Swelling Skin: Warm/Dry, Erythema (lower extremity weaping wounds) Neurologic/Psychiatric: Alert, Oriented x3, Depressed Affect Allergies: Coded Allergies: diphenhydramine (Verified Allergy, Unknown, 01/31/20) RESTLESS LEGSSD Copy Copies To 1: KARMA ALBERTS DO Discharge Summary Date of Admission Jan 31, 2020 at 16:34 Date of Discharge Discharge Date: Feb 01, 2020 Discharge Time: 12:14 Admission Diagnosis Hyperkalemia Discharge Diagnosis (1) Acute hyperkalemia Status: Acute Clinical Quality Measures DVT/VTE Risk/Contraindication: Risk Factor Score Per Nursin RFS Level Per Nursing on Admit: 4+=Very High LISSET DALTON MD Feb 01, 2020 12:14
--- NOTE | 2020-02-01 12:53 | NUR ---
PT REFUSED IV LASIX THIS MORNING AND DR DALTON SAID IT COULD BE CHANGED TO PO LASIX WHICH PT AGAIN REFUSED AND SAID SHE WAS TOLD SHE COULD TAKE THAT MEDICATION AT [facility] SINCE SHE IS BEING DISCHARGED THIS AFTERNOON.
--- NOTE | 2020-02-01 12:54 | NUR ---
PT HAS SIGNED D/C PAPER AND HAS THE REST OF THE PAPERWORK IN RED FOLDER. EMS MANAGER OF FINANCIAL PLANNING AND DISPATCH HAVE BEEN CONTACTED BY THIS RN AND WILL BE OUT SOON THEY CAN TO TAKE HER BACK TO [facility]. PCT STAFF GAVE HER A BED BATH AND HAS ALL HER BELONGINGS READY TO GO.
[2020-02-01 14:08] VITALS: BP 142/80
--- NOTE | 2020-02-01 14:09 | NUR ---
PT LEFT ROOM AT 1409 WITH [facility] EMT'S. IV DISCONTINUED FROM LEFT ARM AND PUREWICK DISCONTINUED. 4 EMT'S WERE ABLE TO GET PT TO STAND UP AND THIS RN AND A PCT MOVED HOSPITAL BED AND EMT MOVED GURNEY UNDER HER AND ABLE TO GET HER TO LAY DOWN ON SAID GURNEY TO TRANSPORT HER BACK TO [facility].
[2020-02-01] MEDS ORDERED: warFARin 5 MG (COUMADIN) TAB PO SCH ×2 (18:00)
== END 2020-02-01 14:09 | disposition designated cancer center or children's hospital (05) ==
LOC: EDUNIT# 14:30 → ER 14:31 → 4TH 16:34
PROVIDERS: ADMIT Internal Medicine; ATTEND Internal Medicine
DX: E87.5 Hyperkalemia (principal); N18.30 Chronic kidney disease, stage 3 unspecified; G47.30 Sleep apnea, unspecified; K21.9 Gastro-esophageal reflux disease without esophagitis; E11.40 Type 2 diabetes mellitus with diabetic neuropathy, unspecified; E66.01 Morbid (severe) obesity due to excess calories; Z68.44 Body mass index [BMI] 60.0-69.9, adult; Z79.84 Long term (current) use of oral hypoglycemic drugs; Z88.8 Allergy status to other drugs, medicaments and biological substances; Z87.891 Personal history of nicotine dependence
CPT/HCPCS: 36415; 80048; 80053; 82962; 85025; 85610; 93005; G0378

== ENCOUNTER → 2020-02-05 | Outpatient (CLI) | payer MEDICAID ==
[~2020-02-05] MED LIST changes: +ACET325T38 PO; +OXYC-525 PO; +PRAM1TAB5 PO; +SILV50CR28 TOP
== END ==
LOC: WOUNDCARE 11:30
PROVIDERS: ATTEND Surgery
DX: I89.0 Lymphedema, not elsewhere classified (principal); L97.312 Non-pressure chronic ulcer of right ankle with fat layer exposed; L97.322 Non-pressure chronic ulcer of left ankle with fat layer exposed; L97.222 Non-pressure chronic ulcer of left calf with fat layer exposed; E66.01 Morbid (severe) obesity due to excess calories; M62.84 Sarcopenia; M62.3 Immobility syndrome (paraplegic); I96 Gangrene, not elsewhere classified; Z68.45 Body mass index [BMI] 70 or greater, adult

== ENCOUNTER → 2020-02-19 | Outpatient (CLI) | payer MEDICAID | LOC: WOUNDCARE 11:30 | PROVIDERS: ATTEND Surgery | DX: I89.0 Lymphedema, not elsewhere classified (principal); I96 Gangrene, not elsewhere classified; L97.222 Non-pressure chronic ulcer of left calf with fat layer exposed; L97.312 Non-pressure chronic ulcer of right ankle with fat layer exposed; L97.322 Non-pressure chronic ulcer of left ankle with fat layer exposed; E66.01 Morbid (severe) obesity due to excess calories; Z68.45 Body mass index [BMI] 70 or greater, adult ==

== ENCOUNTER → 2020-03-03 | Outpatient (CLI) | payer MEDICAID | LOC: WOUNDCARE 12:30 | PROVIDERS: ATTEND Surgery | DX: L97.212 Non-pressure chronic ulcer of right calf with fat layer exposed (principal); I89.0 Lymphedema, not elsewhere classified; L97.312 Non-pressure chronic ulcer of right ankle with fat layer exposed; L97.322 Non-pressure chronic ulcer of left ankle with fat layer exposed; E66.01 Morbid (severe) obesity due to excess calories; L97.222 Non-pressure chronic ulcer of left calf with fat layer exposed; M62.84 Sarcopenia; M62.3 Immobility syndrome (paraplegic); L03.113 Cellulitis of right upper limb; L03.114 Cellulitis of left upper limb; I96 Gangrene, not elsewhere classified; Z20.828 Contact with and (suspected) exposure to other viral communicable diseases ==

== ENCOUNTER → 2020-03-08 | Outpatient (CLI) | payer MEDICAID ==
[2020-03-08 11:44] LABS: INR 5.3 (0.8-1.4); PROTHROMBIN TIME PATIENT 48.7 SEC (12.2-14.7)
== END ==
LOC: LABNPT 09:50
PROVIDERS: ATTEND Internal Medicine
DX: I26.99 Other pulmonary embolism without acute cor pulmonale (principal); I82.442 Acute embolism and thrombosis of left tibial vein
CPT/HCPCS: 85610

== ENCOUNTER → 2020-03-14 | Outpatient (CLI) | payer MEDICAID | LOC: WOUNDCARE 09:45 | PROVIDERS: ATTEND Surgery | DX: L22 Diaper dermatitis (principal); L97.121 Non-pressure chronic ulcer of left thigh limited to breakdown of skin; L97.212 Non-pressure chronic ulcer of right calf with fat layer exposed; I89.0 Lymphedema, not elsewhere classified; L97.312 Non-pressure chronic ulcer of right ankle with fat layer exposed; L97.322 Non-pressure chronic ulcer of left ankle with fat layer exposed; E66.01 Morbid (severe) obesity due to excess calories; L97.222 Non-pressure chronic ulcer of left calf with fat layer exposed; M62.84 Sarcopenia; M62.3 Immobility syndrome (paraplegic); L03.115 Cellulitis of right lower limb; L03.116 Cellulitis of left lower limb; I96 Gangrene, not elsewhere classified ==

== ENCOUNTER 2020-03-20 15:23 | Emergency (ER) | payer MEDICAID ==
[~2020-03-20] VITALS: Ht 172.7 cm; Wt 204.1 kg
[2020-03-20 15:53] LABS: BASOPHILS % (AUTO) 0 % (0-10); EOSINOPHILS # (AUTO) 0.4 10^3/uL (0.0-0.3); EOSINOPHILS % (AUTO) 4 % (0-10); HEMATOCRIT 33 % (35-52); HEMOGLOBIN 10.1 g/dL (11.5-16.0); LYMPHOCYTES # (AUTO) 1.4 10^3/uL (1.0-4.0); LYMPHOCYTES % (AUTO) 14 % (12-44); MEAN CORPUSCULAR HEMOGLOBIN 29 pg (25-34); MEAN CORPUSCULAR HGB CONC 31 g/dL (32-36); MEAN CORPUSCULAR VOLUME 92 fL (80-99); MEAN PLATELET VOLUME 9.4 fL (9.0-12.2); MONOCYTES % (AUTO) 10 % (0-12); NEUTROPHILS % (AUTO) 70 % (42-75); PLATELET COUNT 508 10^3/uL (130-400)
[2020-03-20 16:01] LABS: INR 3.6 (0.8-1.4); PROTHROMBIN TIME PATIENT 36.2 SEC (12.2-14.7)
[2020-03-20 16:01] LABS: BILIRUBIN,URINE NEGATIVE (NEGATIVE); CLARITY,URINE CLEAR; COLOR,URINE YELLOW; GLUCOSE, URINE (UA) NEGATIVE (NEGATIVE); KETONES,URINE NEGATIVE (NEGATIVE); LEUKOCYTE ESTERASE ,URINE 2+ (NEGATIVE); NITRITE,URINE POSITIVE (NEGATIVE); PH,URINE 6.5 (5-9); PROTEIN,URINE NEGATIVE (NEGATIVE)
[2020-03-20 16:04] LABS: ALBUMIN 2.6 GM/DL (3.2-4.5)
[2020-03-20 16:05] LABS: POTASSIUM 3.3 MMOL/L (3.6-5.0)
[2020-03-20 16:06] LABS: CALCIUM 8.6 MG/DL (8.5-10.1)
[2020-03-20 16:07] LABS: TOTAL PROTEIN 7.7 GM/DL (6.4-8.2)
[2020-03-20 16:09] LABS: AMORPHOUS SEDIMENT,UR FEW AMOR URATES /LPF; BACTERIA,URINE FEW /HPF; SQUAMOUS EPITHELIAL CELL,UR 0-2 /HPF
[2020-03-20 16:09] LABS: BILIRUBIN,TOTAL 0.3 MG/DL (0.1-1.0)
[2020-03-20 16:11] LABS: CREATININE SERUM 1.12 MG/DL (0.60-1.30)
[2020-03-20] MEDS ORDERED: NS IV 1000 ML 1,000 ML IV SCH (16:15)
--- NOTE | 2020-03-20 16:25 | Diagnostic Imaging Report ---
INDICATION: Sepsis. TECHNIQUE: Frontal chest obtained at 04:20 p.m. and compared to 10/16/2019. FINDINGS: There is prominent cardiomegaly. There is worsening central vascular congestion. There is diffuse interstitial edema versus infiltrate. There is no consolidation or pleural fluid. IMPRESSION: Cardiomegaly with central vascular congestion with worsening interstitial edema versus infiltrate. Follow-up is recommended. Dictated by: Dictated on workstation # [id number]
[2020-03-20] MEDS ORDERED: ONDANSETRON 4 MG/2 ML (SDV) Z0FRAN IVP ONE (16:45)
--- NOTE | 2020-03-20 16:46 | ED Integumentary General ---
General Chief Complaint: Skin/Wound Problems Stated Complaint: LOWER EXT CELLULITITS Nursing Triage Note: PT BROUGHT IN BY [facility] FROM [facility] FOR POSSIBLE CELLULITIS OF LEFT LEG. PT HAS BEEN FOLLOWING WITH WOUND CARE. History of Present Illness Date Seen by Provider: Mar 20, 2020 Time Seen by Provider: 15:23 Initial Comments 54-year-old female with morbid obesity, nonambulatory presents for chronic ulcers to her left lower extremity. She has been seen by Dr. Gamble for several months for wound care. He evaluated her via telehealth today and felt the wounds were unchanged. She was started on doxycycline [address] Gamble He notified her primary care provider, Dr. Beck, of the update on the wounds and she was sent here by Dr. Beck's office. Timing/Duration: getting worse Location: extremities (Left lower) Associated Symptoms: change in skin texture Allergies and Home Medications Allergies Coded Allergies: diphenhydramine (Verified Allergy, Unknown, 01/31/20) RESTLESS LEGSSD Home Medications Acetaminophen 325 Mg Tablet, 650 MG PO Q4H PRN for PAIN-MILD (1-4), (Reported) Allopurinol 100 Mg Tablet, 100 MG PO BID, (Reported) Baclofen 10 Mg Tablet, 10 MG PO QID, (Reported) Diclofenac Sodium 100 Gm Gel..gram., 1 APPLIC TD Q6H PRN for PAIN-BREAKTHROUGH, (Reported) APPLY 4 GRAMS TO EACH KNEE NOT TO EXCEED 32 GRAMS PER DAY Duloxetine HCl 30 Mg Capsule.dr, 30 MG PO DAILY, (Reported) Furosemide 40 Mg Tablet, 40 MG PO DAILY, (Reported) Ibuprofen 200 Mg Capsule, 200 MG PO Q6H PRN for PAIN-MILD (1-4), (Reported) Levothyroxine Sodium 50 Mcg Tablet, 50 MCG PO DAILY, (Reported) Metformin HCl 500 Mg Tablet, 500 MG PO DAILY, (Reported) Metolazone 2.5 Mg Tablet, 2.5 MG PO DAILY, (Reported) Nystatin 15 Gm Oint...g., 1 APPLIC TP BID, (Reported) Oxycodone HCl 15 Mg Tablet, 15 MG PO Q6H PRN for PAIN-SEVERE (8-10), (Reported) Pantoprazole Sodium 40 Mg Tablet.dr, 40 MG PO DAILY, (Reported) Pramipexole Di-HCl 1 Mg Tablet, 1 MG PO 0900,1200,1700, (Reported) Silver Sulfadiazine 50 Gm Cream..g., 1 APPLIC TOP BID, (Reported) APPLY TO BILATERAL ANKLE/LEFT BYRD ULCER Warfarin Sodium 10 Mg Tablet, 10 MG PO PETIT,MO,TU,WE,FR,SA, (Reported) TAKES AT 1700 ON SUN,MON,TUE,WEF,FRI,SAT Warfarin Sodium 10 Mg Tablet, 5 MG PO THUR, (Reported) TAKES OF 10MG TAB AT 1700 Patient Home Medication List Home Medication List Reviewed: Yes Review of Systems Review of Systems Constitutional: no symptoms reported, see HPI Skin: see HPI, other (Skin ulcers left lower extremity) All Other Systems Reviewed Negative Unless Noted: Yes Past Dqjsnwb-Hnbdqu-Bcvnbt Hx Past Med/Social Hx: Reviewed Nursing Past Med/Soc Hx Patient Social History Alcohol Use: Denies Use Recreational Drug Use: No Smoking Status: Former Smoker Type Used: Cigarettes 2nd Hand Smoke Exposure: No Recent Foreign Travel: No Contact w/Someone Who Travel: No Recent Infectious Disease Expo: No Recent Hopitalizations: No Immunizations Up To Date Tetanus Booster (TDap): Unknown Date of Pneumonia Vaccine: Jan 02, 2019 Date of Influenza Vaccine: Jan 03, 2020 Seasonal Allergies Seasonal Allergies: No Past Medical History Surgeries: Yes Appendectomy, Section, Gallbladder, Orthopedic Respiratory: Yes Sleep Apnea Cardiac: No Neurological: No Neuropathy Genitourinary: No Gastrointestinal: Yes Gastroesophageal Reflux Musculoskeletal: Yes Fibromyalgia Endocrine: No Diabetes, Non-Insulin dep HEENT: No Cancer: No Psychosocial: No Integumentary: Yes Recent Skin Changes Blood Disorders: No Physical Exam Vital Signs Vital Signs - First Documented 03/20/20 15:23 Temp 37.0 Pulse 107 Resp 24 B/P (MAP) 122/85 (97) Pulse Ox 99 O2 Delivery Nasal Cannula O2 Flow Rate 3.00 Capillary Refill : Less Than 3 Seconds General Appearance: WD/WN, mild distress, obese HEENT: PERRL/EOMI, normal ENT inspection, TMs normal, pharynx normal Neck: non-tender, full range of motion, supple, normal inspection Cardiovascular: regular rate, rhythm, other (1+ bilateral pedal pulses, cap refill less than 3 seconds bilateral lower extremities.) Respiratory: chest non-tender, lungs clear Gastrointestinal: normal bowel sounds, non tender, soft Back: normal inspection, other (No skin breakdown to back) Extremities: normal range of motion Neurologic/Psychiatric: no motor/sensory deficits, alert, normal mood/affect, oriented x 3 Skin: normal color, warm/dry, other (Stage 1 ulcer to left upper thigh, posterior, no active drainage) Skin Problem Location: lower extremities (Left lower leg) Skin Problem Character: drainage (Malodorous), other (2 ulcers to left lower leg, necrotic, purulent drainage) Progress/Results/Core Measures Results/Orders Lab Results Laboratory Tests Test 03/20/20 15:34 03/20/20 15:50 Range/Units White Blood Count 10.0 4.3-11.0 10^3/uL Red Blood Count 3.55 L 3.80-5.11 10^6/uL Hemoglobin 10.1 L 11.5-16.0 g/dL Hematocrit 33 L 35-52 % Mean Corpuscular Volume 92 80-99 fL Mean Corpuscular Hemoglobin 29 25-34 pg Mean Corpuscular Hemoglobin Concent 31 L 32-36 g/dL Red Cell Distribution Width 21.2 H 10.0-14.5 % Platelet Count 508 H 130-400 10^3/uL Mean Platelet Volume 9.4 9.0-12.2 fL Immature Granulocyte % (Auto) 1 % Neutrophils (%) (Auto) 70 42-75 % Lymphocytes (%) (Auto) 14 12-44 % Monocytes (%) (Auto) 10 0-12 % Eosinophils (%) (Auto) 4 0-10 % Basophils (%) (Auto) 0 0-10 % Neutrophils # (Auto) 7.0 1.8-7.8 10^3/uL Lymphocytes # (Auto) 1.4 1.0-4.0 10^3/uL Monocytes # (Auto) 1.0 0.0-1.0 10^3/uL Eosinophils # (Auto) 0.4 H 0.0-0.3 10^3/uL Basophils # (Auto) 0.0 0.0-0.1 10^3/uL Immature Granulocyte # (Auto) 0.1 0.0-0.1 10^3/uL Prothrombin Time 36.2 H 12.2-14.7 SEC INR Comment 3.6 H 0.8-1.4 Activated Partial Thromboplast Time 65 H 24-35 SEC Sodium Level 136 135-145 MMOL/L Potassium Level 3.3 L 3.6-5.0 MMOL/L Chloride Level 101 98-107 MMOL/L Carbon Dioxide Level 23 21-32 MMOL/L Anion Gap 12 5-14 MMOL/L Blood Urea Nitrogen 24 H 7-18 MG/DL Creatinine 1.12 0.60-1.30 MG/DL Estimat Glomerular Filtration Rate 51 BUN/Creatinine Ratio 21 Glucose Level 112 H 70-105 MG/DL Lactic Acid Level 2.39 *H 0.50-2.00 MMOL/L Calcium Level 8.6 8.5-10.1 MG/DL Corrected Calcium 9.7 8.5-10.1 MG/DL Total Bilirubin 0.3 0.1-1.0 MG/DL Aspartate Amino Transf (AST/SGOT) 21 5-34 U/L Alanine Aminotransferase (ALT/SGPT) 19 0-55 U/L Alkaline Phosphatase 76 40-136 U/L Total Protein 7.7 6.4-8.2 GM/DL Albumin 2.6 L 3.2-4.5 GM/DL Urine Color YELLOW Urine Clarity CLEAR Urine pH 6.5 5-9 Urine Specific [place] 1.010 L 1.016-1.022 Urine Protein NEGATIVE NEGATIVE Urine Glucose (UA) NEGATIVE NEGATIVE Urine Ketones NEGATIVE NEGATIVE Urine Nitrite POSITIVE H NEGATIVE Urine Bilirubin NEGATIVE NEGATIVE Urine Urobilinogen 0.2 < = 1.0 MG/DL Urine Leukocyte Esterase 2+ H NEGATIVE Urine RBC (Auto) 1+ H NEGATIVE Urine RBC NONE /HPF Urine WBC 5-10 H /HPF Urine Squamous Epithelial Cells 0-2 /HPF Urine Crystals NONE /LPF Urine Amorphous Sediment FEW KLARISSA URATES H /LPF Urine Bacteria FEW H /HPF Urine Casts NONE /LPF Urine Mucus NEGATIVE /LPF Urine Culture Indicated YES Micro Results Microbiology 03/20/20 Influenza Types A,B Antigen (XANDER) - Final, Complete My Orders Orders - MONIQUE ODONNELL Cbc With Automated Diff (03/20/20 15:43) Comprehensive Metabolic Panel (03/20/20 15:43) Blood Culture (03/20/20 15:43) Urinalysis (03/20/20 15:43) Urine Culture (03/20/20 15:43) Protime With Inr (03/20/20 15:43) Partial Thromboplastin Time (03/20/20 15:43) Chest 1 View, Ap/Pa Only (03/20/20 15:43) Ed Iv/Invasive Line Start (03/20/20 15:43) O2 (03/20/20 15:43) Wound Culture (03/20/20 15:43) Influenza A And B Antigens (03/20/20 15:43) Lactic Acid Analyzer (03/20/20 15:43) Ed Iv/Invasive Line Start (03/20/20 16:01) Ns Iv 1000 Ml (Sodium Chloride 0.9%) (03/20/20 16:15) Ondansetron Injection (Zofran Injectio (03/20/20 16:45) Medications Given in ED Current Medications Medications Dose Ordered Sig/Reymundo Route Start Time Stop Time Status Last Admin Dose Admin Ondansetron HCl 8 mg ONCE ONCE IVP 03/20/20 16:45 03/20/20 16:46 DC 03/20/20 16:45 8 MG Vital Signs/I&O 03/20/20 03/20/20 03/20/20 15:23 15:23 17:01 Temp 37.0 Pulse 107 100 Resp 24 20 B/P (MAP) 122/85 (97) 122/77 Pulse Ox 99 96 O2 Delivery Nasal Cannula Nasal Cannula Room Air O2 Flow Rate 3.00 3.00 Blood Pressure Mean: 97 Progress Progress Note : Time: 15:23 Progress Note Patient seen and evaluated, will obtain labs, culture obtained from wound. 1600 Dr. Gamble in ED, agreed wounds will probably not heal on their own, however the patient is not septic at this time or requiring admission for treatment. Consider Coumadin Necrosis or Cardiology eval for vascular assessment, can be completed outpatient. [address] Diamond, reviewed assessment and labs, patient stable at this time, no sepsis or other reason to admit, he will follow on outpatient basis. Eventual treatment will be amputation, but no indication for immediate need. Discussed this with patient, will return to [facility] for would care. [facility] notified, will transport patient. Attempted to call [facility] and [facility] times for report on patient and plan to return. Phone not answered. 1645 EMS and fire department, assisted with transfer of patient. Discharge instructions and return precautions reviewed with the patient. 1715 Phone call from [facility], updated on plan of care. Departure Impression Primary Impression: Morbid obesity Additional Impressions: Ulcer of left lower extremity Qualified Codes: L97.923 - Non-pressure chronic ulcer of unspecified part of left lower leg with necrosis of muscle Bedbound Disposition: HOME, SELF-CARE Condition: Stable Departure-Patient Inst. Decision time for Depature: 16:30 Referrals: KARMA BECK DO (PCP/Family) Primary Care Physician Patient Instructions: Wound Care (DC) Add. Discharge Instructions: Continue wound care and medications per Dr. Gamble. Schedule follow-up for [address] Diamond. Elevate bilateral lower extremities as tolerated. Change position every 2 hours. Return to the emergency department for new, urgent healthcare needs. All discharge instructions reviewed with patient and/or family. Voiced understanding. Copy Copies To 1: MIA DIAMOND DO; MARCUS GAMBLE MD; KARMA BECK AMY ARNP Mar 20, 2020 16:46
[2020-03-20 17:01] VITALS: BP 122/77
== END 2020-03-20 17:01 | disposition home or self-care (01) ==
LOC: EDUNIT# 15:25 → ER 15:26
DX: E66.01 Morbid (severe) obesity due to excess calories (principal); L97.923 Non-pressure chronic ulcer of unspecified part of left lower leg with necrosis of muscle; L97.129 Non-pressure chronic ulcer of left thigh with unspecified severity; E11.9 Type 2 diabetes mellitus without complications; K21.9 Gastro-esophageal reflux disease without esophagitis; Z74.01 Bed confinement status; Z87.891 Personal history of nicotine dependence; Z88.8 Allergy status to other drugs, medicaments and biological substances; Z79.01 Long term (current) use of anticoagulants; Z79.84 Long term (current) use of oral hypoglycemic drugs
CPT/HCPCS: 36415; 71045; 80053; 81000; 83605; 85025; 85610; 85730; 87040; 87070; 87077; 87088; 87186; 87205; 87804

== ENCOUNTER → 2020-03-20 | Outpatient (CLI) | payer MEDICAID | LOC: WOUNDCARE 11:30 | PROVIDERS: ATTEND Surgery | DX: I96 Gangrene, not elsewhere classified (principal); L97.212 Non-pressure chronic ulcer of right calf with fat layer exposed; L97.222 Non-pressure chronic ulcer of left calf with fat layer exposed; L97.312 Non-pressure chronic ulcer of right ankle with fat layer exposed; L97.322 Non-pressure chronic ulcer of left ankle with fat layer exposed; I89.0 Lymphedema, not elsewhere classified; L97.121 Non-pressure chronic ulcer of left thigh limited to breakdown of skin; L22 Diaper dermatitis; E66.01 Morbid (severe) obesity due to excess calories; M62.84 Sarcopenia; M62.3 Immobility syndrome (paraplegic); L03.115 Cellulitis of right lower limb; L03.116 Cellulitis of left lower limb; Z68.45 Body mass index [BMI] 70 or greater, adult ==

== ENCOUNTER → 2020-04-03 | Outpatient (CLI) | payer MEDICAID | LOC: WOUNDCARE 11:30 | PROVIDERS: ATTEND Surgery | DX: I89.0 Lymphedema, not elsewhere classified (principal); I96 Gangrene, not elsewhere classified; L97.312 Non-pressure chronic ulcer of right ankle with fat layer exposed; L97.322 Non-pressure chronic ulcer of left ankle with fat layer exposed; L97.222 Non-pressure chronic ulcer of left calf with fat layer exposed; L97.122 Non-pressure chronic ulcer of left thigh with fat layer exposed; L97.212 Non-pressure chronic ulcer of right calf with fat layer exposed; L22 Diaper dermatitis; E66.01 Morbid (severe) obesity due to excess calories; M62.84 Sarcopenia; M62.3 Immobility syndrome (paraplegic); Z68.45 Body mass index [BMI] 70 or greater, adult ==

== ENCOUNTER → 2020-04-09 | Outpatient (CLI) | payer MEDICAID | LOC: WOUNDCARE 11:30 | PROVIDERS: ATTEND Surgery | DX: I89.0 Lymphedema, not elsewhere classified (principal); L97.312 Non-pressure chronic ulcer of right ankle with fat layer exposed; L97.322 Non-pressure chronic ulcer of left ankle with fat layer exposed; L97.222 Non-pressure chronic ulcer of left calf with fat layer exposed; L97.121 Non-pressure chronic ulcer of left thigh limited to breakdown of skin; L22 Diaper dermatitis; E66.01 Morbid (severe) obesity due to excess calories; M62.84 Sarcopenia; M62.3 Immobility syndrome (paraplegic) ==

== ENCOUNTER → 2020-04-24 | Outpatient (CLI) | payer MEDICAID | LOC: WOUNDCARE 11:30 | PROVIDERS: ATTEND Surgery | DX: I89.0 Lymphedema, not elsewhere classified (principal); I96 Gangrene, not elsewhere classified; L97.312 Non-pressure chronic ulcer of right ankle with fat layer exposed; L97.322 Non-pressure chronic ulcer of left ankle with fat layer exposed; L97.222 Non-pressure chronic ulcer of left calf with fat layer exposed; L97.122 Non-pressure chronic ulcer of left thigh with fat layer exposed; L22 Diaper dermatitis; E66.01 Morbid (severe) obesity due to excess calories; M62.84 Sarcopenia; M62.3 Immobility syndrome (paraplegic); Z68.45 Body mass index [BMI] 70 or greater, adult ==

== ENCOUNTER → 2020-05-08 | Outpatient (CLI) | payer MEDICAID | LOC: WOUNDCARE 11:30 | PROVIDERS: ATTEND Surgery | DX: I96 Gangrene, not elsewhere classified (principal); L97.222 Non-pressure chronic ulcer of left calf with fat layer exposed; L97.122 Non-pressure chronic ulcer of left thigh with fat layer exposed; E66.01 Morbid (severe) obesity due to excess calories; I89.0 Lymphedema, not elsewhere classified; M62.84 Sarcopenia; M62.3 Immobility syndrome (paraplegic); Z68.45 Body mass index [BMI] 70 or greater, adult ==

== ENCOUNTER → 2020-05-23 | Outpatient (CLI) | payer MEDICAID | LOC: WOUNDCARE 10:48 | PROVIDERS: ATTEND Orthopaedic Surgery Hand Surgery | DX: I96 Gangrene, not elsewhere classified (principal); L97.228 Non-pressure chronic ulcer of left calf with other specified severity; L97.122 Non-pressure chronic ulcer of left thigh with fat layer exposed; E66.01 Morbid (severe) obesity due to excess calories; M62.84 Sarcopenia; M62.3 Immobility syndrome (paraplegic); I89.0 Lymphedema, not elsewhere classified; Z68.45 Body mass index [BMI] 70 or greater, adult ==

== ENCOUNTER → 2020-06-13 | Outpatient (CLI) | payer MEDICAID | LOC: WOUNDCARE 10:30 | PROVIDERS: ATTEND Orthopaedic Surgery Hand Surgery | DX: I89.0 Lymphedema, not elsewhere classified (principal); L97.121 Non-pressure chronic ulcer of left thigh limited to breakdown of skin; E66.01 Morbid (severe) obesity due to excess calories; M62.84 Sarcopenia; M62.3 Immobility syndrome (paraplegic); I96 Gangrene, not elsewhere classified; Z68.45 Body mass index [BMI] 70 or greater, adult ==

== ENCOUNTER → 2020-06-27 | Outpatient (CLI) | payer MEDICAID | LOC: WOUNDCARE 10:18 | PROVIDERS: ATTEND Orthopaedic Surgery Hand Surgery | DX: I89.0 Lymphedema, not elsewhere classified (principal); L97.121 Non-pressure chronic ulcer of left thigh limited to breakdown of skin; E66.01 Morbid (severe) obesity due to excess calories; M62.84 Sarcopenia; M62.3 Immobility syndrome (paraplegic); Z68.45 Body mass index [BMI] 70 or greater, adult ==

== ENCOUNTER 2020-09-17 09:04 | Inpatient (IN) | payer MEDICAID ==
[~2020-09-17] VITALS: Ht 167 cm; Wt 196.0 kg
[2020-09-17] MEDS ORDERED: LACTATED RINGERS 1,000 ML IV STA (09:10)
[2020-09-17] MEDS ORDERED: fentaNYL INJ 100 MCG/2 ML AMP IVP STA (09:31)
[2020-09-17] MEDS ORDERED: PIPERACILLIN SODIUM/TAZOBACTAM 4.5 GM in NS (IVPB) 100 ML IV ONE (09:45)
[2020-09-17 09:55] LABS: BASOPHILS # (AUTO) 0.1 10^3/uL (0.0-0.1); BASOPHILS % (AUTO) 0 % (0-10); EOSINOPHILS % (AUTO) 0 % (0-10); HEMATOCRIT 34 % (35-52); HEMOGLOBIN 10.1 g/dL (11.5-16.0); LYMPHOCYTES # (AUTO) 1.2 10^3/uL (1.0-4.0); LYMPHOCYTES % (AUTO) 7 % (12-44); MEAN CORPUSCULAR HEMOGLOBIN 25 pg (25-34); MEAN CORPUSCULAR HGB CONC 30 g/dL (32-36); MEAN CORPUSCULAR VOLUME 82 fL (80-99); MEAN PLATELET VOLUME 9.3 fL (9.0-12.2); MONOCYTES # (AUTO) 1.1 10^3/uL (0.0-1.0); MONOCYTES % (AUTO) 7 % (0-12); NEUTROPHILS # (AUTO) 14.6 10^3/uL (1.8-7.8); NEUTROPHILS % (AUTO) 86 % (42-75); PLATELET COUNT 530 10^3/uL (130-400)
[2020-09-17 09:56] LABS: BILIRUBIN,URINE NEGATIVE (NEGATIVE); CLARITY,URINE CLOUDY; COLOR,URINE YELLOW; GLUCOSE, URINE (UA) NEGATIVE (NEGATIVE); KETONES,URINE NEGATIVE (NEGATIVE); LEUKOCYTE ESTERASE ,URINE 3+ (NEGATIVE); NITRITE,URINE NEGATIVE (NEGATIVE); PH,URINE 6.5 (5-9); PROTEIN,URINE TRACE (NEGATIVE)
--- NOTE | 2020-09-17 10:02 | ED General ---
General Chief Complaint: Altered Mental Status Stated Complaint: AMS Source of Information: Patient Exam Limitations: No Limitations History of Present Illness Date Seen by Provider: Sep 17, 2020 Time Seen by Provider: 09:11 Initial Comments Here with report of altered mental status and not participating well in the care at the [facility] that she is a resident [facility]. Patient is morbidly obese with history of right femur fracture that has been repaired and sacral wounds that is currently under therapy. Patient is complaining of right leg pain. No report of falls. She is also reporting pain with bowel movement but has not had a bowel movement in a while due to chronic narcotic use. She has not allowed the nursing care at the [facility] to help her clean. Does have low-grade temperature. Does have history of urinary tract infections with similar presentation of altered mental status. She is not hypotensive. She does have fentanyl patch on currently. Timing/Duration: 2-3 Days, Getting Worse Severity: Moderate Modifying Factors: worse with Movement Associated Systoms: No Cough; Fever/Chills; No Nausea/Vomiting, No Shortness of Air, No Weakness Allergies and Home Medications Allergies Coded Allergies: diphenhydramine (Verified Allergy, Unknown, 01/31/20) RESTLESS LEGSSD Home Medications Acetaminophen 325 Mg Tablet, 650 MG PO Q4H PRN for PAIN-MILD (1-4), (Reported) Allopurinol 100 Mg Tablet, 100 MG PO BID, (Reported) Baclofen 10 Mg Tablet, 10 MG PO QID, (Reported) Diclofenac Sodium 100 Gm Gel..gram., 1 APPLIC TD Q6H PRN for PAIN-BREAKTHROUGH, (Reported) APPLY 4 GRAMS TO EACH KNEE NOT TO EXCEED 32 GRAMS PER DAY Duloxetine HCl 30 Mg Capsule.dr, 30 MG PO DAILY, (Reported) Furosemide 40 Mg Tablet, 40 MG PO DAILY, (Reported) Ibuprofen 200 Mg Capsule, 200 MG PO Q6H PRN for PAIN-MILD (1-4), (Reported) Levothyroxine Sodium 50 Mcg Tablet, 50 MCG PO DAILY, (Reported) Metformin HCl 500 Mg Tablet, 500 MG PO DAILY, (Reported) Metolazone 2.5 Mg Tablet, 2.5 MG PO DAILY, (Reported) Nystatin 15 Gm Oint...g., 1 APPLIC TP BID, (Reported) Oxycodone HCl 15 Mg Tablet, 15 MG PO Q6H PRN for PAIN-SEVERE (8-10), (Reported) Pantoprazole Sodium 40 Mg Tablet.dr, 40 MG PO DAILY, (Reported) Pramipexole Di-HCl 1 Mg Tablet, 1 MG PO 0900,1200,1700, (Reported) Silver Sulfadiazine 50 Gm Cream..g., 1 APPLIC TOP BID, (Reported) APPLY TO BILATERAL ANKLE/LEFT BYRD ULCER Warfarin Sodium 10 Mg Tablet, 10 MG PO PETIT,MO,TU,WE,FR,SA, (Reported) TAKES AT 1700 ON SUN,MON,TUE,WEF,FRI,SAT Warfarin Sodium 10 Mg Tablet, 5 MG PO THUR, (Reported) TAKES OF 10MG TAB AT 1700 Patient Home Medication List Home Medication List Reviewed: Yes Review of Systems Review of Systems Constitutional: see HPI; No chills; fever, weakness EENTM: No nose congestion, No throat pain Respiratory: No cough, No short of breath Cardiovascular: No chest pain; edema Gastrointestinal: No abdominal pain; constipation; No nausea, No vomiting Genitourinary: see HPI, other (Foul-smelling urine) Musculoskeletal: back pain, joint pain, muscle pain Skin: change in color, lesions Psychiatric/Neurological: Denies Headache, Denies Weakness All Other Systems Reviewed Negative Unless Noted: Yes Past Uulqgoj-Yrrfsw-Pyrcld Hx Past Med/Social Hx: Reviewed Nursing Past Med/Soc Hx Patient Social History Alcohol Use: Denies Use Smoking Status: Current Someday Smoker Type Used: Cigarettes 2nd Hand Smoke Exposure: No Recent Hopitalizations: No Immunizations Up To Date Tetanus Booster (TDap): Unknown Date of Pneumonia Vaccine: Jan 02, 2019 Date of Influenza Vaccine: Jan 03, 2020 Seasonal Allergies Seasonal Allergies: No Past Medical History Surgeries: Yes Appendectomy, Section, Gallbladder, Orthopedic Respiratory: Yes Sleep Apnea Cardiac: No Neurological: No Neuropathy Genitourinary: No Gastrointestinal: Yes Gastroesophageal Reflux Musculoskeletal: Yes Fibromyalgia Endocrine: No Diabetes, Non-Insulin dep HEENT: No Cancer: No Psychosocial: No Integumentary: Yes Recent Skin Changes Blood Disorders: No Family Medical History Reviewed Nursing Family Hx Physical Exam-Suspected Sepsis Physical Exam Vital Signs Vital Signs - First Documented 09/17/20 09/17/20 09:12 09:51 Temp 36.7 Pulse 99 Resp 18 B/P (MAP) 107/68 (81) Pulse Ox 94 O2 Delivery Nasal Cannula O2 Flow Rate 2.00 FiO2 94 Capillary Refill : Height, Weight, BMI Height: '" Weight: lbs. oz. kg; 68.00 BMI Method: General Appearance: Moderate Distress, Obese HEENT: PERRL/EOMI, Pharynx Normal Neck: Non Tender, Supple Respiratory: Lungs Clear, Normal Breath Sounds Cardiovascular: No Murmur, Tachycardia Gastrointestinal: Non Tender, Soft, Other (Morbidly obese) Rectal: Other (Large stool ball noted. Digital rectal disimpaction performed and cantaloupe-sized stool ball ultimately obtained. Does have small amount of gross blood noted within the stool and hemorrhoids/irritation noted in the re ctal verge/anus.) Back: Normal Inspection, No CVA Tenderness, No Vertebral Tenderness Extremity: Normal Range of Motion, Non Tender Neurologic/Psychiatric: Alert, Oriented x3 Skin: normal color, warm/dry, other (2 x 2 centimeter sacral ulcer noted with some surrounding erythema.) Focused Exam Lactate Level 09/17/20 09:38: Lactic Acid Level 2.54*H 09/17/20 11:35: Lactic Acid Level 1.73 Lactic Acid Level Laboratory Tests Test 09/17/20 09:38 09/17/20 11:35 Lactic Acid Level 2.54 MMOL/L (0.50-2.00) *H 1.73 MMOL/L (0.50-2.00) Progress/Results/Core Measures Suspected Sepsis SIRS Temperature: Pulse: Respiratory Rate: Laboratory Tests 09/17/20 09:38: White Blood Count 17.0H Blood Pressure / Mean: 09/17/20 09:38: Lactic Acid Level 2.54*H 09/17/20 11:35: Lactic Acid Level 1.73 Laboratory Tests 09/17/20 09:38: Creatinine 2.19H, INR Comment 4.6H, Platelet Count 530H, Total Bilirubin 0.6 Results/Orders Lab Results Laboratory Tests Test 09/17/20 09:35 09/17/20 09:38 09/17/20 11:35 Range/Units Urine Color YELLOW Urine Clarity CLOUDY Urine pH 6.5 5-9 Urine Specific [place] 1.015 L 1.016-1.022 Urine Protein TRACE H NEGATIVE Urine Glucose (UA) NEGATIVE NEGATIVE Urine Ketones NEGATIVE NEGATIVE Urine Nitrite NEGATIVE NEGATIVE Urine Bilirubin NEGATIVE NEGATIVE Urine Urobilinogen 0.2 < = 1.0 MG/DL Urine Leukocyte Esterase 3+ H NEGATIVE Urine RBC (Auto) 2+ H NEGATIVE Urine RBC 5-10 H /HPF Urine WBC TNTC H /HPF Urine Squamous Epithelial Cells 2-5 /HPF Urine Crystals NONE /LPF Urine Bacteria LARGE H /HPF Urine Casts NONE /LPF Urine Mucus NEGATIVE /LPF Urine Culture Indicated YES White Blood Count 17.0 H 4.3-11.0 10^3/uL Red Blood Count 4.13 3.80-5.11 10^6/uL Hemoglobin 10.1 L 11.5-16.0 g/dL Hematocrit 34 L 35-52 % Mean Corpuscular Volume 82 80-99 fL Mean Corpuscular Hemoglobin 25 25-34 pg Mean Corpuscular Hemoglobin Concent 30 L 32-36 g/dL Red Cell Distribution Width 18.7 H 10.0-14.5 % Platelet Count 530 H 130-400 10^3/uL Mean Platelet Volume 9.3 9.0-12.2 fL Immature Granulocyte % (Auto) 1 % Neutrophils (%) (Auto) 86 H 42-75 % Lymphocytes (%) (Auto) 7 L 12-44 % Monocytes (%) (Auto) 7 0-12 % Eosinophils (%) (Auto) 0 0-10 % Basophils (%) (Auto) 0 0-10 % Neutrophils # (Auto) 14.6 H 1.8-7.8 10^3/uL Lymphocytes # (Auto) 1.2 1.0-4.0 10^3/uL Monocytes # (Auto) 1.1 H 0.0-1.0 10^3/uL Eosinophils # (Auto) 0.0 0.0-0.3 10^3/uL Basophils # (Auto) 0.1 0.0-0.1 10^3/uL Immature Granulocyte # (Auto) 0.1 0.0-0.1 10^3/uL Neutrophils % (Manual) 83 % Lymphocytes % (Manual) 10 % Monocytes % (Manual) 2 % Eosinophils % (Manual) 1 % Band Neutrophils 4 % Hypochromasia MODERATE Anisocytosis SLIGHT Microcytosis SLIGHT Prothrombin Time 43.3 H 12.2-14.7 SEC INR Comment 4.6 H 0.8-1.4 Activated Partial Thromboplast Time 55 H 24-35 SEC Sodium Level 137 135-145 MMOL/L Potassium Level 3.1 L 3.6-5.0 MMOL/L Chloride Level 97 L 98-107 MMOL/L Carbon Dioxide Level 22 21-32 MMOL/L Anion Gap 18 H 5-14 MMOL/L Blood Urea Nitrogen 30 H 7-18 MG/DL Creatinine 2.19 H 0.60-1.30 MG/DL Estimat Glomerular Filtration Rate 23 BUN/Creatinine Ratio 14 Glucose Level 107 H 70-105 MG/DL Lactic Acid Level 2.54 *H 1.73 0.50-2.00 MMOL/L Calcium Level 9.6 8.5-10.1 MG/DL Corrected Calcium 10.2 H 8.5-10.1 MG/DL Total Bilirubin 0.6 0.1-1.0 MG/DL Aspartate Amino Transf (AST/SGOT) 28 5-34 U/L Alanine Aminotransferase (ALT/SGPT) 12 0-55 U/L Alkaline Phosphatase 90 40-136 U/L Total Protein 8.8 H 6.4-8.2 GM/DL Albumin 3.3 3.2-4.5 GM/DL My Orders Orders - SANJAY ODELL MD Cbc With Automated Diff (09/17/20 09:10) Comprehensive Metabolic Panel (09/17/20 09:10) Blood Culture (09/17/20 09:10) Sputum Culture (09/17/20 09:10) Urinalysis (09/17/20 09:10) Urine Culture (09/17/20 09:10) Protime With Inr (09/17/20 09:10) Partial Thromboplastin Time (09/17/20 09:10) Chest 1 View, Ap/Pa Only (09/17/20 09:10) Ed Iv/Invasive Line Start (09/17/20 09:10) Vital Signs Adult Sepsis Patie Q15M (09/17/20 09:10) O2 (09/17/20 09:10) Remove Rings In Anticipation O (09/17/20 09:10) Lactic Acid Analyzer (09/17/20 09:10) Lactated Ringers (Lr 1000 Ml Iv Solution (09/17/20 09:10) Piperacillin Sodium/Tazobactam (Zosyn Vi (09/17/20 09:45) Fentanyl Inj (Sublimaze Injection) (09/17/20 09:31) Manual Differential (09/17/20 09:38) Medications Given in ED Current Medications Medications Dose Ordered Sig/Reymundo Route Start Time Stop Time Status Last Admin Dose Admin Piperacillin Sod/ Tazobactam Sod 4.5 gm/Sodium Chloride 100 ml @ 200 mls/hr ONCE ONCE IV 09/17/20 09:45 09/17/20 10:14 DC 09/17/20 10:51 200 MLS/HR Vital Signs/I&O 09/17/20 09/17/20 09/17/20 09:12 09:51 11:55 Temp 36.7 Pulse 99 88 Resp 18 18 B/P (MAP) 107/68 (81) 131/81 Pulse Ox 94 94 95 O2 Delivery Nasal Cannula Nasal Cannula Nasal Cannula O2 Flow Rate 2.00 2.00 2.00 FiO2 94 Capillary Refill : Progress Note : Progress Note Seen and evaluated. Sepsis protocol initiated. I did assist nursing with rolling the patient and ultimately perform digital rectal disimpaction after partial stool ball noted and then large stool ball obtained. We were able to place Palencia catheter at that time. Patient is morbidly obese and does have sacral wound. LR 1 L bolus ordered. Zosyn 4.5 g IV ordered after blood cultures complete due to cloudy, foul-smelling urine and concerns for sepsis. Monitor patient. 1105: I did discuss the case with Dr. Lindsay. Patient does have rather remarkable urinary tract infection with mild elevation of lactic acid and moderate elevation of white count. Concerns for multidrug-resistant organism. Patient has appropriate blood pressure. She is appropriate for [facility] admission. Dr. Lindsay accepts patient inpatient status.. Patient agrees to plan. Diagnostic Imaging Diagonstic Imaging: Xray Plain Films/CT/US/NM/MRI: chest Comments [facility]. [place], [place] NAME: NIRAV CAMPOS [facility] REC#: [id number] PT STATUS: REG ER : 1965 PHYSICIAN: SANJAY ODELL MD ADMIT DATE: 09/17/20/ER Draft Date of Exam:09/17/20 CHEST 1 VIEW, AP/PA ONLY Indication: Sepsis. Time of exam 10:05 AM Correlation is made with prior chest from 03/20/2020. The heart is enlarged. Lungs appear to be clear. No definite infiltrate or failure seen. There is no effusion or pneumothorax. IMPRESSION: Cardiomegaly. No other significant abnormality is detected. Dictated on workstation # [id number] Dict: 09/17/20 1012 Trans: 09/17/20 1015 [facility] [id number] Interpreted by: KEN MITCHELL MD Electronically signed by: Departure Communication (Admissions) Time/Spoke to Admitting Phy: 11:05 Impression Primary Impression: Sepsis Qualified Codes: A41.9 - Sepsis, unspecified organism Additional Impressions: Urinary tract infection Qualified Codes: N30.00 - Acute cystitis without hematuria Sacral ulcer Qualified Codes: L98.422 - Non-pressure chronic ulcer of back with fat layer exposed Supratherapeutic INR Disposition: ADMITTED INPATIENT Condition: Stable Admissions Decision to Admit Reason: Admit from ER (General) Decision to Admit/Date: Sep 17, 2020 Time/Decision to Admit Time: 11:05 Departure-Patient Inst. Referrals: KARMA ALBERTS DO (PCP/Family) Primary Care Physician SANJAY ODELL MD Sep 17, 2020 10:02
[2020-09-17 10:05] LABS: ALBUMIN 3.3 GM/DL (3.2-4.5)
[2020-09-17 10:06] LABS: POTASSIUM 3.1 MMOL/L (3.6-5.0)
[2020-09-17 10:07] LABS: CALCIUM 9.6 MG/DL (8.5-10.1); INR 4.6 (0.8-1.4); PROTHROMBIN TIME PATIENT 43.3 SEC (12.2-14.7)
[2020-09-17 10:08] LABS: TOTAL PROTEIN 8.8 GM/DL (6.4-8.2)
[2020-09-17 10:09] LABS: ANISOCYTOSIS SLIGHT; BAND NEUTROPHILS 4 %; EOSINOPHILS % (MANUAL) 1 %; HYPOCHROMASIA MODERATE; LYMPHOCYTES % (MANUAL) 10 %; MICROCYTOSIS SLIGHT; MONOCYTES % (MANUAL) 2 %; NEUTROPHILS % (MANUAL) 83 %
[2020-09-17 10:10] LABS: BILIRUBIN,TOTAL 0.6 MG/DL (0.1-1.0)
[2020-09-17 10:12] LABS: CREATININE SERUM 2.19 MG/DL (0.60-1.30)
[2020-09-17 10:16] LABS: BACTERIA,URINE LARGE /HPF; WBC,URINE TNTC /HPF
--- NOTE | 2020-09-17 10:16 | Diagnostic Imaging Report ---
Indication: Sepsis. Time of exam 10:05 AM Correlation is made with prior chest from 03/20/2020. The heart is enlarged. Lungs appear to be clear. No definite infiltrate or failure seen. There is no effusion or pneumothorax. IMPRESSION: Cardiomegaly. No other significant abnormality is detected. Dictated by: Dictated on workstation # [id number]
[2020-09-17 12:13] VITALS: BP 130/89
[2020-09-17] MEDS ORDERED: ONDANSETRON 4 MG/2 ML (SDV) Z0FRAN IV PRN ×2 (12:30→15:00)
[2020-09-17] MEDS: LACTATED RINGERS 1,000 ML IV SCH ×2 (13:05→20:39)
--- NOTE | 2020-09-17 14:05 | History & Physical-Hospitalist ---
History of Present Illness HPI/Chief Complaint Pt is 55yoCF with a PMH of hypothyroidism, chronic pain, history of DVT, NIDDMII, and morbid obesity who presented to the ER today due to confusion and fever. She woke very briefly for more and complained of neck pain. I asked when there started and she said "When you moved me." I informed her I had not moved her and she then shut her eyes and went back to sleep. All other history is obtained from the records She reportedly began getting confused 3 days ago and refused to let anyone at the halfway assist in her care or cleaning. She complained of right leg pain tot he Er. She was found to have a stool impaction and this by disimpacted by the ER physician revealing a cantaloupe size stool ball. She was also found to meet severe sepsis criteria and was admitted for IV abx for her UTI. Source: patient Date Seen 09/17/20 Time Seen by a Provider: 14:00 Attending Physician Salas Lindsay MD PCP Omero Beck DO Referring Physician Date of Admission Sep 17, 2020 at 11:47 Home Medications & Allergies Home Medications Reviewed patient Home Medication Reconciliation performed by pharmacy medication reconciliations paint technician and/or nursing. Patients Allergies have been reviewed. Allergies Allergies Coded Allergies diphenhydramine (Verified Allergy, Unknown, 01/31/20) RESTLESS LEGSSD Past Dzvzlsw-Kzbqfp-Khbfbb Hx Patient Social History Employed/Student: unemployed Smoking Status: Current Someday Smoker Immunizations Up To Date Date of Influenza Vaccine: Jan 03, 2020 Tetanus Booster (TDap): Unknown Date of Pneumonia Vaccine: Jan 02, 2019 Seasonal Allergies Seasonal Allergies: No Current Status Primary Language: Sinhala Past Medical History Surgeries: Appendectomy, Section, Gallbladder, Orthopedic Sleep Apnea Neuropathy Gastroesophageal Reflux Fibromyalgia Diabetes, Non-Insulin dep Recent Skin Changes Blood Disorders: No Family Medical History Reviewed Nursing Family Hx No Pertinent Family Hx Review of Systems ROS-Unable to Obtain: patient did not participate, see HPI Constitutional: see HPI Physical Exam Physical Exam Vital Signs Vital Signs - First Documented 09/17/20 09/17/20 09:12 09:51 Temp 36.7 Pulse 99 Resp 18 B/P (MAP) 107/68 (81) Pulse Ox 94 O2 Delivery Nasal Cannula O2 Flow Rate 2.00 FiO2 94 Capillary Refill : Less Than 3 Seconds Height, Weight, BMI Height: '" Weight: lbs. oz. kg; 70.00 BMI Method: General Appearance: No Apparent Distress, Chronically ill, Obese HEENT: PERRL/EOMI, Moist Mucous Membranes; No Scleral Icterus (L), No Scleral Icterus (R) Neck: Normal Inspection, Supple Respiratory: Lungs Clear, No Respiratory Distress Cardiovascular: Regular Rate, Rhythm, No Murmur Gastrointestinal: Normal Bowel Sounds, Non Tender, Soft Extremity: Pedal Edema, Swelling, Other (left leg with dressing in place) Neurologic/Psychiatric: Alert, Disoriented Skin: Normal Color, Warm/Dry Results Results/Procedures Labs Laboratory Tests 09/17/20 09:38 Patient resulted labs reviewed. Imaging: Reviewed Imaging Report Imaging [facility], [place] NAME: NIRAV CAMPOS [facility] REC#: [id number] PT STATUS: REG ER : 1965 PHYSICIAN: SANJAY ODELL MD ADMIT DATE: 09/17/20/ER Draft Date of Exam:09/17/20 CHEST 1 VIEW, AP/PA ONLY Indication: Sepsis. Time of exam 10:05 AM Correlation is made with prior chest from 03/20/2020. The heart is enlarged. Lungs appear to be clear. No definite infiltrate or failure seen. There is no effusion or pneumothorax. IMPRESSION: Cardiomegaly. No other significant abnormality is detected. Dictated on workstation # [id number] Dict: 09/17/20 1012 Trans: 09/17/20 1015 [facility] [phone] Interpreted by: KEN MITCHELL MD Electronically signed by: Assessment/Plan Admission Diagnosis Severe Sepsis Admission Status: Inpatient Order (span 2 midnights) Reason for Inpatient Admission: see below Assessment and Plan Severe Sepsis UTI [place] Leukocytosis with tachycardia and reported fever, lactic acidosis UA consistent with UTI Previously has grown somewhat resistent proteus on culture from 03/2020 Continue Zosyn Await cultures Creatinine 2.19 up from 1.12 in March Lymphedema Morbid Obesity Sacral wound Wound care consulted, appreciate recs Does not appear to have cellulitis as well PT/OT History of DVT INR supratherapeutic Check in AM Hold home warfarin Hypothyroidism Continue home med DVT ppx: Supratherapeutic INR Diagnosis/Problems Diagnosis/Problems (1) Sepsis Status: Acute Qualifiers: Sepsis type: sepsis due to unspecified organism Sepsis acute organ dysfunction status: with acute organ dysfunction Severe sepsis acute organ dysfunction type: acute renal failure Acute renal failure type: unspecified Severe sepsis shock status: without septic shock Qualified Codes: A41.9 - Sepsis, unspecified organism; R65.20 - Severe sepsis without septic shock; N17.9 - Acute kidney failure, unspecified (2) Sacral ulcer Status: Acute Qualifiers: Non-pressure ulcer stage: with fat layer exposed Qualified Codes: L98.422 - Non-pressure chronic ulcer of back with fat layer exposed (3) Supratherapeutic INR Status: Acute (4) Urinary tract infection Status: Acute Qualifiers: Urinary tract infection type: acute cystitis Hematuria presence: without hematuria Qualified Codes: N30.00 - Acute cystitis without hematuria (5) Bedbound Status: Acute (6) Morbid obesity (7) [place] (acute kidney injury) (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
--- NOTE | 2020-09-17 14:50 | Physical Therapy Evaluation ---
PT Evaluation-General Medical Diagnosis Admission Date Sep 17, 2020 at 11:47 Medical Diagnosis: urosepsis, AMS Onset Date: Sep 17, 2020 Therapy Diagnosis Therapy Diagnosis: impaired mobility, strength Referral Physician: Angélica Reason for Referral: Evaluation/Treatment Medical History Pertinent Medical History: DM, Hypothroidism, Neuropathy Additional Medical History Past Medical History Surgeries: Appendectomy, Section, Gallbladder, Orthopedic Sleep Apnea Neuropathy Gastroesophageal Reflux Fibromyalgia Diabetes, Non-Insulin dep Recent Skin Changes Reviewed History: Yes Social History Home: Custodial Prior Prior Level of Function SCALE: Activities may be completed with or without assistive devices. 9-Dlpseulsvf-cisjfva completes the activity by him/herself with no assistance from a helper. 5-Set-up or Clean-up Assistance-helper sets up or cleans up; patient completes activity. [place] assists only prior to or following the activity. 4-Supervision or Touching Assistance-helper provides verbal cues and/or touching/steadying and/or contact guard assistance as patient completes activity. Assistance may be provided throughout the activity or intermittently. 3-Partial/Moderate Assistance-helper does LESS THAN HALF the effort. [place] lifts, holds or supports trunk or limbs, but provides less than half the effort. 2-Substantial/Maximal Assistance-helper does MORE THAN HALF the effort. [place] lifts or holds trunk or limbs and provides more than half the effort. 7-Jifjtngwa-vttzby does ALL the effort. Patient does none of the effort to complete the activity. Or, the assistance of 2 or more helpers is required for the patient to complete the activity. If activity was not attempted, code reason: 7-Patient Refused. 9-Not Applicable-not attempted and the patient did not perform the activity before the current illness, exacerbation or injury. 10-Not Attempted due to Environmental Limitations-(lack of equipment, weather restraints, etc.). 88-Not Attempted due to Medical Conditions or Safety Concerns. Bed Mobility: 1 Transfers (B,C,W/C): 1 Indoor Mobility (Ambulation): Not [place] Stairs: Not [place] Prior Devices Use: Mechanical lift Patient is a group home resident. She says she only gets out of bed via maty to a bedside commode. No sitting or standing. PT Evaluation-Current Subjective Patient in bed pre tx, she cannot be roused without a sternal rub. After waking she yells out that her neck hurts over an over, cursing and moaning. Patient initially agrees to participate in physical therapy but then says she doesn't want to perform LE exercises and refused to try to sit on the side of the bed. Patient drifts in and out of sleep and has to be roused many times. Pt/Family Goals none stated Objective Patient Orientation: Person, Situation Attachments: Palencia Catheter ROM/Strength ROM Lower Extremities limited due to obesity and non-participation, patient is observed moving her ankles, she has a collapsed arch on the right side. Strength Lower Extremities not tested, patient refuses Sensory Vision: Functional Hearing: Functional Assessment/Needs Patient has impaired mobility, strength. Patient in bed post tx with nurse call, phone, tray, all needs met. Patient refuses to perform LE exercises or try to sit on the side of the bed. Patient states she only gets out of bed via maty lift. Patient states she does perform LE exercises at the group home and is advised to continue doing them, patient agrees and states she knows which ones to do. Patient seems to be at previous level of functional mobility which is dependent with transfers via maty lift. Rehab Potential: Poor PT Halfway Goals Director Service Goals PT Director Service Goals Time Frame: Sep 17, 2020 PT Plan Treatment/Plan Treatment Plan: Discontinue PT Treatment Duration: Sep 17, 2020 Frequency: Safety Risks/Education Patient Education: Correct Positioning, Safety Issues Teaching Recipient: Patient Teaching Methods: Discussion Response to Teaching: Verbalize Understanding Discharge Recommendations Plan DC Therapy Discharge Recommendati: 24 Hour Supervision Time/GCodes Time In: 1432 Time Out: 1440 Total Billed Treatment Time: 8 Total Billed Treatment 1 visit JENNIFER TORIBIO PT Sep 17, 2020 14:50
--- NOTE | 2020-09-17 14:55 | Occupational Therapy Eval ---
OT Evaluation-General/PLF Medical Diagnosis Admission Date Sep 17, 2020 at 11:47 Medical Diagnosis: UTI Onset Date: Sep 14, 2020 Therapy Diagnosis Therapy Diagnosis: decreased ADL Status Referral Physician: Angélica Referral Reason: Evaluation/Treatment Medical History Pertinent Medical History: DM, Hypothroidism, Neuropathy Current History ED due to confusion and fever Social History Home: [facility] ADL-Prior Level of Function SCALE: Activities may be completed with or without assistive devices. 1-Idcsgoemap-pcmdpzv completes the activity by him/herself with no assistance from a helper. 5-Set-up or Clean-up Assistance-helper sets up or cleans up; patient completes activity. [place] assists only prior to or following the activity. 4-Supervision or Touching Assistance-helper provides verbal cues and/or touching/steadying and/or contact guard assistance as patient completes activity. Assistance may be provided throughout the activity or intermittently. 3-Partial/Moderate Assistance-helper does LESS THAN HALF the effort. [place] lifts, holds or supports trunk or limbs, but provides less than half the effort. 2-Substantial/Maximal Assistance-helper does MORE THAN HALF the effort. [place] lifts or holds trunk or limbs and provides more than half the effort. 8-Sllqkrjpx-wyjdga does ALL the effort. Patient does none of the effort to complete the activity. Or, the assistance of 2 or more helpers is required for the patient to complete the activity. If activity was not attempted, code reason: 7-Patient Refused. 9-Not Applicable-not attempted and the patient did not perform the activity before the current illness, exacerbation or injury. 10-Not Attempted due to Environmental Limitations-(lack of equipment, weather restraints, etc.). 88-Not Attempted due to Medical Conditions or Safety Concerns. ADL PLOF Comments Pt required assistance with ADLs at OF, uses mechanical lift for transfers. She uses a BSC, has assistance with toileting, and assistance in shower. Pt indicates she is able to complete part of the shower, but requires assistance as she is unable to reach her legs. She is primarily bed bound at [place] Self Care: Needed Some Help OT Current Status Subjective Pt laying in bed sleeping, difficulty waking pt up. Pt awoken to sternal rub, and had difficulty remaining awake with tx. Pt reports 10/10 pain in neck immediately upon wakening and repeatedly stated "oh shit" and "God damn it" Mental Status/Objective Attachments: Palencia Catheter, IV Current Upper Extremity ROM WFL, RUE shoulder flexion to approx 120 degrees, LUE shoulder flexion to approx 90 degrees Upper Extremity Coordination WFL ADL-Treatment Eating (QC): 6 (Based on clincial judgement, pt independent ) Lower Body Dressing (QC): 1 (based on clincial judgement and pt report.) On/Off Footwear (QC): 1 (Based on clincial judgement, pt dependent with task) Toileting Hygiene (QC): 1 (Per clincial judgement and pt report) Other Treatments Pt laying in bed, difficulty waking pt. Pt reports pain upon waking. OT educated pt on purpose and benefit of OT. Pt attempted to provide information about PLOF, had difficulty staying awake with conversation. OT encouraged pt to attempt sitting on side of bed, pt initially agreeable, but once sheet moved she refused. Pt declines any OOB and ADLs. Pt appears to be at PLOF, requiring mechanical lift for transfers, and requiring assistance with ADLs. Post tx, pt laying in bed, call light in reach and all needs met. Education OT Patient Education: Correct positioning, Modified ADL techniques, Progress toward Goal/Update tx plan, Purpose of tx/functional activities, Rehab process Teaching Recipient: Patient Teaching Methods: Discussion OT Marketing Secretary Goals Prison Goals 1=Demonstrate adherence to instructed precautions during ADL tasks. 2=Patient will verbalize/demonstrate understanding of assistive devices/modifications for ADL. 3=Patient will improve strength/tolerance for activity to enable patient to perform ADL's. OT Education/Plan Problem List/Assessment Assessment: No Skilled OT Needs ID'd No skilled OT services indicated at this time, as pt is at PLOF and requires assistance with ADLs and a mechanical lift for transfers. Discharge Recommendations Plan/Recommendations: Discharge/Goals Met Treatment Plan/Plan of Care Patient would benefit from OT for education, treatment and training to promote independence in ADL's, mobility, safety and/or upper extremity function for ADL's. Plan of Care: ADL Retraining Treatment Duration: Sep 17, 2020 Frequency: 1 time per week (eval only) Time/GCodes Start Time: 14:32 Stop Time: 14:40 Total Time Billed (hr/min): 8 Billed Treatment Time 1, DUNIA LIND OT Sep 17, 2020 14:55
[2020-09-17 15:00] VITALS: BP 121/70
[2020-09-17] MEDS ORDERED: MILK OF MAGNESIA 400 MG/5 ML 30 ML UDC PO PRN (15:00)
[2020-09-17] MEDS ORDERED: BENZONATATE 100 MG (TESSALON) CAPSULE PO PRN (15:00)
[2020-09-17] MEDS ORDERED: fentaNYL INJ 100 MCG/2 ML AMP IVP PRN (15:00)
[2020-09-17] MEDS ORDERED: MELATONIN 3 MG TABLET PO PRN (15:00)
[2020-09-17] MEDS ORDERED: ACETAMINOPHEN 325 MG TABLET PO PRN (15:00)
[2020-09-17] MEDS ORDERED: fentaNYL INJ 100 MCG/2 ML AMP ONE ×2 (15:00→15:21)
[2020-09-17] MEDS ORDERED: ANTACID SUSP 30 ML UDC (MYLANTA) PO PRN (15:00)
[2020-09-17] MEDS: fentaNYL INJ 100 MCG/2 ML AMP IVP PRN ×4 (15:27→23:18)
[2020-09-17] MEDS ORDERED: DULO60CA59 PO (16:04)
[2020-09-17] MEDS ORDERED: MECL-149 PO (16:04)
[2020-09-17] MEDS ORDERED: LEVO88TA54 PO (16:04)
[2020-09-17] MEDS ORDERED: FENT1PAT60 TD (16:04)
[2020-09-17] MEDS ORDERED: NA P133E36 RC (16:04)
[2020-09-17] MEDS ORDERED: VENL150C98 PO (16:04)
[2020-09-17] MEDS ORDERED: ONDA4TAB11 PO (16:04)
[2020-09-17] MEDS ORDERED: OXYM30SP25 NSEACH (16:04)
[2020-09-17] MEDS: inSUlin ASPART (NovoLOG) 1 UNIT/0.01 ML (CHARGE PER UNIT) SC SCH ×2 (16:34→20:38)
[2020-09-17] MEDS: PIPERACILLIN/TAZO 4.5 GM/NS 100 ML IV SCH ×2 (17:00)
[2020-09-17 20:00] VITALS: BP 127/66
[2020-09-17] MEDS ORDERED: KCL 20 MEQ TAB (K-DUR) PO ONE (21:00)
[2020-09-17] MEDS: BACLOFEN 10 MG (LIORESAL) TAB PO SCH (21:30)
[2020-09-17 23:17] VITALS: BP 129/75
[2020-09-17] MEDS: HYDROcodone/APAP 5 MG/325 MG (LORTAB) TAB PO PRN (23:18)
[2020-09-18] MEDS: PIPERACILLIN/TAZO 4.5 GM/NS 100 ML IV SCH ×6 (01:12→16:28)
[2020-09-18] MEDS: LACTATED RINGERS 1,000 ML IV SCH (01:12)
[2020-09-18 03:54] VITALS: BP 127/82
[2020-09-18] MEDS: HYDROcodone/APAP 5 MG/325 MG (LORTAB) TAB PO PRN ×2 (04:00→08:22)
[2020-09-18] MEDS: fentaNYL INJ 100 MCG/2 ML AMP IVP PRN ×4 (04:00→18:41)
[2020-09-18 05:40] LABS: BASOPHILS % (AUTO) 0 % (0-10); EOSINOPHILS # (AUTO) 0.4 10^3/uL (0.0-0.3); EOSINOPHILS % (AUTO) 3 % (0-10); HEMATOCRIT 28 % (35-52); HEMOGLOBIN 8.3 g/dL (11.5-16.0); LYMPHOCYTES # (AUTO) 0.9 10^3/uL (1.0-4.0); LYMPHOCYTES % (AUTO) 7 % (12-44); MEAN CORPUSCULAR HEMOGLOBIN 24 pg (25-34); MEAN CORPUSCULAR HGB CONC 30 g/dL (32-36); MEAN CORPUSCULAR VOLUME 81 fL (80-99); MEAN PLATELET VOLUME 9.2 fL (9.0-12.2); MONOCYTES # (AUTO) 0.8 10^3/uL (0.0-1.0); MONOCYTES % (AUTO) 7 % (0-12); NEUTROPHILS # (AUTO) 9.6 10^3/uL (1.8-7.8); NEUTROPHILS % (AUTO) 82 % (42-75); PLATELET COUNT 381 10^3/uL (130-400); WHITE BLOOD COUNT 11.7 10^3/uL (4.3-11.0)
[2020-09-18 06:06] LABS: POTASSIUM 2.8 MMOL/L (3.6-5.0)
[2020-09-18 06:11] LABS: CREATININE SERUM 2.12 MG/DL (0.60-1.30)
[2020-09-18] MEDS: inSUlin ASPART (NovoLOG) 1 UNIT/0.01 ML (CHARGE PER UNIT) SC SCH ×4 (06:21→21:40)
[2020-09-18 07:03] VITALS: BP 126/73
[2020-09-18 07:14] LABS: INR 4.9 (0.8-1.4)
[2020-09-18] MEDS: BACLOFEN 10 MG (LIORESAL) TAB PO SCH ×4 (08:22→21:50)
[2020-09-18] MEDS ORDERED: KCL 20 MEQ TAB (K-DUR) PO ONE (09:00)
[2020-09-18] MEDS ORDERED: fentaNYL PATCH 100 MCG (DURAGESIC) TD SCH (10:00)
[2020-09-18] MEDS ORDERED: FLEET ENEMA ADULT 1 EA BTL RC PRN (10:00)
[2020-09-18] MEDS ORDERED: MECLIZINE 25 MG (ANTIVERT) TAB PO PRN (10:00)
[2020-09-18] MEDS ORDERED: ACETAMINOPHEN 325 MG TABLET PO PRN (10:00)
[2020-09-18] MEDS ORDERED: ONDANSETRON 4 MG (ZOFRAN) ORAL DISSOLVE TAB PO PRN (10:00)
[2020-09-18] MEDS ORDERED: IBUPROFEN TABLET 200 MG TAB PO PRN (10:15)
[2020-09-18 11:50] VITALS: BP 128/68
[2020-09-18] MEDS: PRAMIPEXOLE 0.5 MG TAB (MIRAPEX) PO SCH ×2 (11:56→16:28)
[2020-09-18 16:10] VITALS: BP 127/93
[2020-09-18] MEDS: ALLOPURINOL 100 MG (ZYLOPRIM) TAB PO SCH (16:28)
[2020-09-18] MEDS: VENlafaxine XR 75 MG (EFFEXOR XR) CAP PO SCH (16:28)
--- NOTE | 2020-09-18 18:21 | Wound Care Assessment ---
Wound Care Assessment Date Seen by Provider: Sep 18, 2020 Time Seen by Provider: 17:50 Chief Complaint Sacral ulcer. HPI The patient is a 55 year old female with reportedly a sacral pressure ulcer. She refuses examination. Will sign off. Past Medical History: Admits Diabetes Type II Smoking Status: Former Smoker Recreational Drug Use: No Alcohol Use: Denies Use Exam Vital Signs Date Time Temp Pulse Resp B/P (MAP) Pulse Ox O2 Delivery O2 Flow Rate FiO2 09/18/20 16:10 35.6 79 16 127/93 (104) 94 Room Air 09/18/20 11:50 4.50 09/17/20 09:12 94 Capillary Refill : Less Than 3 Seconds Results Laboratory Tests 09/17/20 19:31: Glucometer 106 09/17/20 20:37: Glucometer 130H 09/18/20 05:15: White Blood Count 11.7H, Red Blood Count 3.40L, Hemoglobin 8.3L, Hematocrit 28L, Mean Corpuscular Volume 81, Mean Corpuscular Hemoglobin 24L, Mean Corpuscular Hemoglobin Concent 30L, Red Cell Distribution Width 18.6H, Platelet Count 381, Mean Platelet Volume 9.2, Immature Granulocyte % (Auto) 1, Neutrophils (%) (Auto) 82H, Lymphocytes (%) (Auto) 7L, Monocytes (%) (Auto) 7, Eosinophils (%) (Auto) 3, Basophils (%) (Auto) 0, Neutrophils # (Auto) 9.6H, Lymphocytes # (Auto) 0.9L, Monocytes # (Auto) 0.8, Eosinophils # (Auto) 0.4H, Basophils # (Auto) 0.0, Immature Granulocyte # (Auto) 0.1, Prothrombin Time 46.0*H, INR Comment 4.9H, Sodium Level 135, Potassium Level 2.8L, Chloride Level 96L, Carbon Dioxide Level 25, Anion Gap 14, Blood Urea Nitrogen 35H, Creatinine 2.12H, Estimat Glomerular Filtration Rate 24, BUN/Creatinine Ratio 17, Glucose Level 102, Calcium Level 9.0 09/18/20 10:18: Glucometer 105 09/18/20 15:24: Glucometer 101 Microbiology 09/17/20 Blood Culture - Preliminary, Resulted Enterobacter cloacae complex 09/17/20 Urine Culture - Preliminary, Resulted Gram Negative Ricki Microbiology 09/17/20 Blood Culture - Preliminary, Resulted Enterobacter cloacae complex 09/17/20 Blood Culture - Preliminary, Resulted Enterobacter cloacae complex Probable Staph Aureus 09/17/20 Urine Culture - Preliminary, Resulted Gram Negative Ricki Assessment/Plan/Dx 1. Sacral pressure ulcer, indeterminate severity. 2. Morbid obesity. 3. Limited mobility. Plan: Will sign off. MARCUS HO MD Sep 18, 2020 18:21
[2020-09-18 19:30] VITALS: BP 116/50
[2020-09-19 00:24] VITALS: BP 112/73
[2020-09-19] MEDS: PIPERACILLIN/TAZO 4.5 GM/NS 100 ML IV SCH ×4 (01:15→09:42)
[2020-09-19] MEDS: fentaNYL INJ 100 MCG/2 ML AMP IVP PRN ×5 (01:54→16:38)
[2020-09-19 04:25] VITALS: BP 125/80
[2020-09-19 06:10] LABS: HEMATOCRIT 27 % (35-52); HEMOGLOBIN 8.3 g/dL (11.5-16.0); MEAN CORPUSCULAR HEMOGLOBIN 25 pg (25-34); MEAN CORPUSCULAR HGB CONC 30 g/dL (32-36); MEAN CORPUSCULAR VOLUME 81 fL (80-99); MEAN PLATELET VOLUME 9.3 fL (9.0-12.2); PLATELET COUNT 323 10^3/uL (130-400); WHITE BLOOD COUNT 7.4 10^3/uL (4.3-11.0)
[2020-09-19 06:28] LABS: CALCIUM 9.1 MG/DL (8.5-10.1)
[2020-09-19 06:32] LABS: CREATININE SERUM 1.53 MG/DL (0.60-1.30)
[2020-09-19] MEDS: inSUlin ASPART (NovoLOG) 1 UNIT/0.01 ML (CHARGE PER UNIT) SC SCH ×3 (07:02→16:41)
[2020-09-19 07:15] VITALS: BP 132/84
[2020-09-19] MEDS ORDERED: KCL 20 MEQ TAB (K-DUR) PO NR (07:45)
[2020-09-19 08:20] LABS: INR 3.8 (0.8-1.4); PROTHROMBIN TIME PATIENT 37.9 SEC (12.2-14.7)
[2020-09-19] MEDS ORDERED: PANTOPRAZOLE 40 MG (PROTONIX) TAB PO SCH (09:00)
[2020-09-19] MEDS ORDERED: FUROSEMIDE 40 MG (LASIX) TAB PO SCH (09:00)
[2020-09-19] MEDS ORDERED: LEVOTHYROXINE 88 MCG (LEVOTHORID) TAB PO SCH (09:00)
[2020-09-19] MEDS: BACLOFEN 10 MG (LIORESAL) TAB PO SCH ×2 (09:41→14:33)
[2020-09-19] MEDS: ALLOPURINOL 100 MG (ZYLOPRIM) TAB PO SCH (09:49)
[2020-09-19] MEDS: PRAMIPEXOLE 0.5 MG TAB (MIRAPEX) PO SCH ×2 (09:49→14:33)
[2020-09-19] MEDS: VENlafaxine XR 75 MG (EFFEXOR XR) CAP PO SCH (09:49)
[2020-09-19] MEDS ORDERED: SULF1TAB35 PO (10:52)
[2020-09-19 11:40] VITALS: BP 125/77
--- NOTE | 2020-09-19 11:42 | Discharge Inst-Simple/Standard ---
Discharge Inst-Standard Discharge Medications New, Converted or Re-Newed RX: Transmitted to Pharmacy Patient Instructions/Follow Up Plan of Care/Instructions/FU: Please continue to take your medications as written. Please follow up with your primary care doctor follow up this hospital stay. Activity as Tolerated: Yes Discharge Diet: No Restrictions Return to The Hospital For: Chest pain, shortness of breath, confusion, weakness, if you feel you are getting worse. SALAS CISNEROS MD Sep 19, 2020 11:42
--- NOTE | 2020-09-19 14:05 | Diagnostic Imaging Report ---
INDICATION: History of previous femoral fracture 2 years ago with persistent pain. 4 views of the right femur. Study is very limited due to morbid obesity. Patient was unable to position. Films are underpenetrated. FINDINGS: Long stem gamma nail shows compression screw to be most likely in good position in the femoral head though detail is limited. There is a angulation of the interlocking screw distally which presumably is fractured. There is no lucency about the daria to suggest loosening. There are no fractures demonstrated. IMPRESSION: Limited study with probable fractured interlocking screw distally otherwise no abnormalities noted. Dictated by: Dictated on workstation # [id number]
[2020-09-19 15:15] VITALS: BP 125/77
[2020-09-19] MEDS: HYDROcodone/APAP 5 MG/325 MG (LORTAB) TAB PO PRN (16:11)
[2020-09-19 16:45] VITALS: BP 125/77
[2020-09-21] MEDS ORDERED: FENTANYL PATCH REMOVAL TP SCH (10:00)
== END 2020-09-19 16:45 | DRG 872 ==
LOC: EDUNIT# 09:04 → ER 09:05 → 4TH 11:47
PROVIDERS: ADMIT Family Medicine; ATTEND Family Medicine
DX: A41.9 Sepsis, unspecified organism (principal); N39.0 Urinary tract infection, site not specified; N17.9 Acute kidney failure, unspecified; L97.929 Non-pressure chronic ulcer of unspecified part of left lower leg with unspecified severity; Z68.45 Body mass index [BMI] 70 or greater, adult; R65.20 Severe sepsis without septic shock; I89.0 Lymphedema, not elsewhere classified; E66.01 Morbid (severe) obesity due to excess calories; Z86.718 Personal history of other venous thrombosis and embolism; E03.9 Hypothyroidism, unspecified; L98.422 Non-pressure chronic ulcer of back with fat layer exposed; Z79.01 Long term (current) use of anticoagulants; F17.210 Nicotine dependence, cigarettes, uncomplicated; E11.40 Type 2 diabetes mellitus with diabetic neuropathy, unspecified; K21.9 Gastro-esophageal reflux disease without esophagitis; E11.622 Type 2 diabetes mellitus with other skin ulcer; Z79.84 Long term (current) use of oral hypoglycemic drugs; Z79.899 Other long term (current) drug therapy
CPT/HCPCS: 36410; 36415; 51702; 71045; 73552; 76937; 80048; 80053; 81000; 82947; 83605; 85007; 85025; 85027; 85610; 85730; 87040; 87077; 87088; 87186

== ENCOUNTER → 2021-11-20 | Outpatient (CLI) | payer MEDICAID ==
[~2021-11-20] VITALS: Ht 170 cm; Wt 157.7 kg
[~2021-11-20] MED LIST changes: +DICL100G13 TD; -DICL100G31 TD; +DULO60CA59 PO; +FENT1PAT60 TD; +LEVO88TA54 PO; +MECL-149 PO; +NA P133E36 RC; +ONDA4TAB11 PO; +OXYM30SP25 NSEACH; -POTA10TA36 PO; +POTA10TA37 PO; -POTA99TA21 PO; +POTA99TA26 PO; -SULF1TAB35 PO; +SULF1TAB38 PO; +VENL150C98 PO
[2021-11-20 13:55] VITALS: BP 101/63
== END ==
LOC: EDUNIT# 13:48 → ER 13:49 → EDSTATUS 13:58 → SDC 14:00
PROVIDERS: ATTEND Nurse Practitioner Family
DX: L03.115 Cellulitis of right lower limb (principal)
CPT/HCPCS: 36569; 76937